=== PATIENT | male | born 1945 | race Caucasian/White ===

== ENCOUNTER 2017-07-10 09:07 | Inpatient (IN) | payer MEDICARE, OTHER ==
[~2017-07-10] VITALS: Ht 170.2 cm; Wt 87.5 kg
[2017-07-10] VITALS (21 sets, daily range): BP systolic 123–168; BP diastolic 58–99
[~2017-07-10 09:07] MED LIST: ALPR-324 PO; ATOR40TA71 PO; CLOP75TA15 PO; DULA0.75; FURO40TA4 PO; GLIP10TA11 PO; LISI40TA4 PO; METF500T7 PO; METO25TA6 PO; NIFE60TA69 PO; NITR0.4T51 SL; PIOG15TA8 PO; ROPI1TAB2 PO; TAMS0.4C32 PO; TRAZ-146 PO
[2017-07-10] MEDS ORDERED: aspirin 81mg tab.chew PO ONE (09:25)
[2017-07-10 09:55] LABS: INR 1.1 INR; PARTIAL THROMBOPLASTIN TIME 24 SECONDS (22-32); PROTHROMBIN TIME 11.1 SECONDS (9.0-12.0)
[2017-07-10 09:59] LABS: ALANINE AMINOTRANSFERASE 21 U/L (12-78); ALBUMIN 3.2 G/DL (3.4-5.0); ALKALINE PHOSPHATASE 86 IU/L (46-116); ANION GAP 10 (8-16); ASPARTATE AMINO TRANSFERASE 15 U/L (10-37); BILIRUBIN,TOTAL 0.2 MG/DL (0.1-1.0); BLOOD UREA NITROGEN 30 MG/DL (7-18); BUN/CREATININE RATIO 21.4 (5.4-32.0); CALCIUM 8.9 MG/DL (8.5-10.1); CHLORIDE 104 MMOL/L (99-107); GLUCOSE 137 MG/DL (70-104); POTASSIUM 3.7 MMOL/L (3.5-5.1); SODIUM 139 MMOL/L (135-145); TOTAL CARBON DIOXIDE 25.1 MMOL/L (24-32); TOTAL PROTEIN 6.4 G/DL (6.4-8.2); eGFR 50 ML/MIN
[2017-07-10] MEDS ORDERED: nitroGLYCERIN 0.4mg SUBLingual tab SL PRN ×2 (10:25→12:55)
[2017-07-10 10:27] LABS: BASOPHILS # (AUTO) 0.1 X10'3 (0-0.2); BASOPHILS % (AUTO) 0.6 % (0-1); EOSINOPHILS # (AUTO) 0.4 X10'3 (0-0.9); LYMPHOCYTES # (AUTO) 1.2 X10'3 (1.1-4.8); LYMPHOCYTES % (AUTO) 12.1 % (21-51); MEAN CORPUSCULAR HGB CONC 31.5 % (33.0-36.5); MEAN CORPUSCULAR VOLUME 82.4 FL (78-98); MEAN PLATELET VOLUME 7.9 FL (7.4-10.4); MONOCYTES # (AUTO) 0.7 X10'3 (0-0.9); MONOCYTES % (AUTO) 7.3 % (2-12); NEUTROPHILS # (AUTO) 7.6 X10'3 (1.8-7.7); PLATELET COUNT 383 X10'3 (140-440); RED BLOOD COUNT 2.65 X10'6 (4.70-6.10); RED CELL DISTRIBUTION WIDTH 19.5 % (11.5-14.5)
[2017-07-10 10:55] LABS: HEMATOCRIT 21.9 % (42.0-52.0); HEMOGLOBIN 6.9 g/dl (14.0-17.9)
[2017-07-10] MEDS ORDERED: furosemide 10 MG/1 ML 10ml inj IV ONE (12:20)
[2017-07-10] MEDS ORDERED: ASPI-920 PO (12:30)
[2017-07-10] MEDS ORDERED: IRON1CAP13 PO (12:30)
[2017-07-10] MEDS ORDERED: normal saline 1000ml 1,000 ML IV SCH ×2 (12:46→16:16)
[2017-07-10] MEDS ORDERED: magnesium hydroxide 30ml (MOM) UD suspension PO PRN (12:50)
[2017-07-10] MEDS ORDERED: magnesium Cl slow-release 64mg tablet PO PRN (12:50)
[2017-07-10] MEDS ORDERED: potassium Cl 20 mEq SR tablet PO PRN ×2 (12:50)
[2017-07-10] MEDS ORDERED: potassium Cl 40MEQ/NS 500ml 500 ML IV PRN ×2 (12:50)
[2017-07-10] MEDS ORDERED: ondansetron/PF 4mg/2ml inj IV PRN (12:50)
[2017-07-10] MEDS ORDERED: magnesium 2GM in 50ml NS 50 ML IV PRN (12:50)
[2017-07-10] MEDS ORDERED: HYDROcodone/acetaminophen 10/325mg tab PO PRN (12:50)
[2017-07-10] MEDS ORDERED: magnesium 4gm in 100ml NS 100 ML IV PRN (12:50)
[2017-07-10] MEDS ORDERED: morphine 2 MG/ML inj. syringe IV PRN ×2 (12:50)
[2017-07-10] MEDS ORDERED: HYDROcodone/acetaminophen 5mg/325mg tablet PO PRN (12:50)
[2017-07-10] MEDS ORDERED: mag hydrox/Alum hydrox/simeth 30ml oral suspension PO PRN (12:50)
[2017-07-10] MEDS ORDERED: acetaminophen 325mg tablet PO PRN ×2 (12:50)
[2017-07-10] MEDS ORDERED: MESSAGE TO PHARMACY PO ONE (12:55)
[2017-07-10] MEDS ORDERED: dextrose 50%-water 50ml dispensing syringe IV PRN ×2 (12:55)
[2017-07-10] MEDS ORDERED: glucagon, human recombinant 1mg kit SUBCUT PRN (12:55)
[2017-07-10] MEDS ORDERED: non-formulary drug (Alprazolam 1 MG) PO PRN (12:55)
[2017-07-10] MEDS ORDERED: insulin Lispro (HumaLOG) vial - multi-dose SQ SCH (12:55)
[2017-07-10] MEDS ORDERED: dextrose ORAL solution 15 GM/59 ML bottle PO PRN ×2 (12:55)
[2017-07-10] MEDS ORDERED: ALPRAZolam 0.5mg tablet PO PRN (13:05)
[2017-07-10 13:58] LABS: OCCULT BLOOD STOOL POSITIVE (Neg)
[2017-07-10 15:26] LABS: HEMOGLOBIN A1C 6.5 % (4.5-6.2)
[2017-07-10] MEDS ORDERED: fentaNYL/PF 50MCG/1 ML 2ML syringe ONE (15:41)
[2017-07-10] MEDS ORDERED: MIDAZolam 1mg/ml 10ml vial ONE (15:41)
[2017-07-10] MEDS ORDERED: LIDOcaine Viscous 15ml cup ONE (15:42)
[2017-07-10] MEDS ORDERED: fentaNYL/PF 50MCG/1 ML 2ML syringe IV PRN (16:20)
[2017-07-10] MEDS ORDERED: LIDOcaine Viscous 15ml cup PO ONE (16:20)
[2017-07-10] MEDS ORDERED: MIDAZolam 5mg/5ml vial IV PRN (16:20)
[2017-07-10] MEDS: pantoprazole 40mg Tablet.DR PO SCH (20:00)
[2017-07-10] MEDS: metoprolol tartrate 25mg tablet PO SCH (20:00)
[2017-07-10] MEDS ORDERED: furosemide 40mg/4ml inj IV ONE (20:10)
[2017-07-10] MEDS ORDERED: non-formulary drug (Trazodone HCl 1 TAB) PO SCH (21:00)
[2017-07-10] MEDS: ROPINIRole 1mg tablet PO SCH (21:00)
[2017-07-10] MEDS: traZODone 50mg tablet PO SCH (21:00)
[2017-07-10] MEDS: Insulin Detemir pen SQ SCH (21:00)
[2017-07-10] MEDS ORDERED: temazepam 15mg capsule PO PRN (21:00)
[2017-07-11] VITALS (13 sets, daily range): BP systolic 130–164; BP diastolic 64–85
[2017-07-11 05:44] LABS: BASOPHILS % (AUTO) 0.3 % (0-1); EOSINOPHILS # (AUTO) 0.3 X10'3 (0-0.9); EOSINOPHILS % (AUTO) 2.8 % (0-6); HEMATOCRIT 35.1 % (42.0-52.0); HEMOGLOBIN 11.6 g/dl (14.0-17.9); LYMPHOCYTES # (AUTO) 1.5 X10'3 (1.1-4.8); LYMPHOCYTES % (AUTO) 13.2 % (21-51); MEAN CORPUSCULAR HGB CONC 32.9 % (33.0-36.5); MEAN CORPUSCULAR VOLUME 85.1 FL (78-98); MEAN PLATELET VOLUME 7.6 FL (7.4-10.4); MONOCYTES # (AUTO) 0.8 X10'3 (0-0.9); MONOCYTES % (AUTO) 7.2 % (2-12); NEUTROPHILS # (AUTO) 8.9 X10'3 (1.8-7.7); NEUTROPHILS % (AUTO) 76.5 % (42-75); PLATELET COUNT 349 X10'3 (140-440); RED BLOOD COUNT 4.12 X10'6 (4.70-6.10); RED CELL DISTRIBUTION WIDTH 17.6 % (11.5-14.5); WHITE BLOOD COUNT 11.6 X10'3 (4.5-11.0)
[2017-07-11 06:16] LABS: ALANINE AMINOTRANSFERASE 24 U/L (12-78); ALBUMIN 3.5 G/DL (3.4-5.0); ALBUMIN/GLOBULIN RATIO 1.1 (1.1-1.5); ALKALINE PHOSPHATASE 102 IU/L (46-116); ANION GAP 10 (8-16); ASPARTATE AMINO TRANSFERASE 18 U/L (10-37); BILIRUBIN,TOTAL 0.9 MG/DL (0.1-1.0); BLOOD UREA NITROGEN 21 MG/DL (7-18); BUN/CREATININE RATIO 16.7 (5.4-32.0); CALCIUM 8.5 MG/DL (8.5-10.1); CHLORIDE 106 MMOL/L (99-107); CREATININE 1.26 MG/DL (0.60-1.10); GLUCOSE 133 MG/DL (70-104); MAGNESIUM 2.1 MG/DL (1.5-2.4); POTASSIUM 3.6 MMOL/L (3.5-5.1); SODIUM 142 MMOL/L (135-145); TOTAL CARBON DIOXIDE 26.3 MMOL/L (24-32); TOTAL PROTEIN 6.8 G/DL (6.4-8.2); eGFR 57 ML/MIN
[2017-07-11] MEDS: K and/or MAG REPLACEMENT MC SCH (08:00)
[2017-07-11] MEDS ORDERED: non-formulary drug (Atorvastatin Calcium 1 TABLET) PO SCH (08:00)
[2017-07-11] MEDS ORDERED: NIFEDIPINE PO SCH (08:00)
[2017-07-11] MEDS: pantoprazole 40mg Tablet.DR PO SCH ×2 (09:19→21:18)
[2017-07-11] MEDS: atorvastatin 20mg tablet PO SCH (09:20)
[2017-07-11] MEDS: metoprolol tartrate 25mg tablet PO SCH ×2 (09:20→21:19)
[2017-07-11] MEDS: clopidogrel 75mg tablet PO SCH (09:21)
[2017-07-11] MEDS: NIFEdipine XL 30mg tablet PO SCH (09:22)
[2017-07-11] MEDS: tamsulosin 0.4mg capsule PO SCH (09:22)
[2017-07-11] MEDS: lisinopril 10 MG tablet PO SCH (09:24)
[2017-07-11 18:26] LABS: BASOPHILS % (AUTO) 0.2 % (0-1); EOSINOPHILS # (AUTO) 0.3 X10'3 (0-0.9); EOSINOPHILS % (AUTO) 2.4 % (0-6); HEMATOCRIT 36.8 % (42.0-52.0); HEMOGLOBIN 12.2 g/dl (14.0-17.9); LYMPHOCYTES # (AUTO) 1.5 X10'3 (1.1-4.8); LYMPHOCYTES % (AUTO) 14.1 % (21-51); MEAN CORPUSCULAR HEMOGLOBIN 28.4 PG (27.0-31.0); MEAN CORPUSCULAR HGB CONC 33.2 % (33.0-36.5); MEAN CORPUSCULAR VOLUME 85.5 FL (78-98); MEAN PLATELET VOLUME 7.8 FL (7.4-10.4); MONOCYTES % (AUTO) 8.9 % (2-12); NEUTROPHILS # (AUTO) 7.9 X10'3 (1.8-7.7); NEUTROPHILS % (AUTO) 74.4 % (42-75); PLATELET COUNT 338 X10'3 (140-440); RED CELL DISTRIBUTION WIDTH 18.7 % (11.5-14.5); WHITE BLOOD COUNT 10.6 X10'3 (4.5-11.0)
[2017-07-11] MEDS: Insulin Detemir pen SQ SCH (21:00)
[2017-07-11] MEDS: ROPINIRole 1mg tablet PO SCH (21:18)
[2017-07-11] MEDS: traZODone 50mg tablet PO SCH (21:19)
[2017-07-12 03:06] VITALS: BP 156/72
[2017-07-12 06:09] LABS: BASOPHILS % (AUTO) 0.2 % (0-1); EOSINOPHILS # (AUTO) 0.3 X10'3 (0-0.9); EOSINOPHILS % (AUTO) 2.9 % (0-6); HEMATOCRIT 35.2 % (42.0-52.0); HEMOGLOBIN 11.5 g/dl (14.0-17.9); LYMPHOCYTES # (AUTO) 1.9 X10'3 (1.1-4.8); LYMPHOCYTES % (AUTO) 18.8 % (21-51); MEAN CORPUSCULAR HGB CONC 32.7 % (33.0-36.5); MEAN CORPUSCULAR VOLUME 85.7 FL (78-98); MEAN PLATELET VOLUME 8.2 FL (7.4-10.4); MONOCYTES % (AUTO) 10.1 % (2-12); NEUTROPHILS # (AUTO) 6.8 X10'3 (1.8-7.7); PLATELET COUNT 324 X10'3 (140-440); RED BLOOD COUNT 4.11 X10'6 (4.70-6.10); RED CELL DISTRIBUTION WIDTH 18.6 % (11.5-14.5)
[2017-07-12 06:37] LABS: ALANINE AMINOTRANSFERASE 20 U/L (12-78); ALBUMIN 3.2 G/DL (3.4-5.0); ALKALINE PHOSPHATASE 96 IU/L (46-116); ANION GAP 8 (8-16); ASPARTATE AMINO TRANSFERASE 16 U/L (10-37); BILIRUBIN,TOTAL 0.5 MG/DL (0.1-1.0); BLOOD UREA NITROGEN 20 MG/DL (7-18); BUN/CREATININE RATIO 16.4 (5.4-32.0); CALCIUM 8.7 MG/DL (8.5-10.1); CHLORIDE 107 MMOL/L (99-107); CREATININE 1.22 MG/DL (0.60-1.10); GLUCOSE 138 MG/DL (70-104); MAGNESIUM 2.1 MG/DL (1.5-2.4); POTASSIUM 3.4 MMOL/L (3.5-5.1); SODIUM 141 MMOL/L (135-145); TOTAL CARBON DIOXIDE 26.2 MMOL/L (24-32); TOTAL PROTEIN 6.4 G/DL (6.4-8.2); eGFR 59 ML/MIN
[2017-07-12 08:00] VITALS: BP 164/77
[2017-07-12] MEDS: clopidogrel 75mg tablet PO SCH (08:00)
[2017-07-12] MEDS: K and/or MAG REPLACEMENT MC SCH (08:00)
[2017-07-12] MEDS ORDERED: POTA20TA19 PO (08:30)
[2017-07-12] MEDS ORDERED: PANT40TA4 PO (08:30)
[2017-07-12] MEDS: lisinopril 10 MG tablet PO SCH (08:47)
[2017-07-12] MEDS: atorvastatin 20mg tablet PO SCH (08:47)
[2017-07-12] MEDS: pantoprazole 40mg Tablet.DR PO SCH (08:48)
[2017-07-12] MEDS: NIFEdipine XL 30mg tablet PO SCH (08:51)
[2017-07-12] MEDS: metoprolol tartrate 25mg tablet PO SCH (08:52)
[2017-07-12] MEDS: tamsulosin 0.4mg capsule PO SCH (08:52)
== END 2017-07-12 10:50 | disposition home or self-care (01) | DRG 378 ==
LOC: ER 09:08 → ED HOLD 12:46 → EDBEDREQ 15:50 → PCU 3S 17:57
PROVIDERS: ADMIT Internal Medicine; ATTEND Internal Medicine
PROC: 0DB68ZX Excision of Stomach, Via Natural or Artificial Opening Endoscopic, Diagnostic (ICD-10-PCS; principal; 2017-07-10)
PROC: 30233N1 Transfusion of Nonautologous Red Blood Cells into Peripheral Vein, Percutaneous Approach (ICD-10-PCS; 2017-07-10)
DX: K92.2 Gastrointestinal hemorrhage, unspecified (principal); D62 Acute posthemorrhagic anemia; E11.51 Type 2 diabetes mellitus with diabetic peripheral angiopathy without gangrene; J44.9 Chronic obstructive pulmonary disease, unspecified; K52.9 Noninfective gastroenteritis and colitis, unspecified; K22.70 Barrett's esophagus without dysplasia; E78.5 Hyperlipidemia, unspecified; F41.9 Anxiety disorder, unspecified; K22.4 Dyskinesia of esophagus; G25.81 Restless legs syndrome; G47.00 Insomnia, unspecified; I25.10 Atherosclerotic heart disease of native coronary artery without angina pectoris; N28.9 Disorder of kidney and ureter, unspecified; N40.0 Benign prostatic hyperplasia without lower urinary tract symptoms; Z95.820 Peripheral vascular angioplasty status with implants and grafts; Z79.82 Long term (current) use of aspirin; Z79.899 Other long term (current) drug therapy; Z79.84 Long term (current) use of oral hypoglycemic drugs; Z79.02 Long term (current) use of antithrombotics/antiplatelets; Z86.010 Personal history of colon polyps
CPT/HCPCS: 36415; 43239; 71045; 80053; 82272; 82948; 83036; 83735; 83880; 84484; 85025; 85610; 85730; 86885; 86900; 86901; 86920; 88305; 93005; 93306; 96374; 99285; A4620; G0500; J1940; J2250; J3010; J7030; P9016

== ENCOUNTER 2017-07-20 05:26 | Inpatient (IN) | payer MEDICARE, OTHER ==
[2017-07-16 14:46] LABS: BASOPHILS % (AUTO) 0.4 % (0-1); EOSINOPHILS # (AUTO) 0.5 X10'3 (0-0.9); LYMPHOCYTES # (AUTO) 2.4 X10'3 (1.1-4.8); LYMPHOCYTES % (AUTO) 23.8 % (21-51); MEAN CORPUSCULAR HEMOGLOBIN 28.3 PG (27.0-31.0); MEAN CORPUSCULAR HGB CONC 32.9 % (33.0-36.5); MEAN PLATELET VOLUME 8.1 FL (7.4-10.4); MONOCYTES # (AUTO) 0.7 X10'3 (0-0.9); MONOCYTES % (AUTO) 7.3 % (2-12); NEUTROPHILS # (AUTO) 6.5 X10'3 (1.8-7.7); NEUTROPHILS % (AUTO) 63.5 % (42-75); PRE OP HEMATOCRIT 36.3 % (42.0-52.0); PRE OP HEMOGLOBIN 11.9 g/dL (14.0-17.9); PRE OP PLATELET COUNT 304 X10'3 (140-440); RED BLOOD COUNT 4.22 X10'6 (4.70-6.10); RED CELL DISTRIBUTION WIDTH 18.2 % (11.5-14.5)
[2017-07-16 14:47] LABS: CLARITY,URINE CLEAR (Clear); COLOR,URINE YELLOW (Yellow); GLUCOSE, URINE NEGATIVE (Neg); KETONES,URINE NEGATIVE (Neg); LEUKOCYTE ESTERASE ,URINE NEGATIVE (Neg); NITRITES, URINE NEGATIVE (Neg); OCCULT BLOOD,URINE NEGATIVE (Neg); PH,URINE 5.5 (4.8-8.0); PROTEIN,URINE >=300 mg/dl (Neg); UROBILINOGEN,URINE 0.2 E.U/dL (0.2-1.0)
[2017-07-16 14:57] LABS: UA COLLECTION TYPE CLN CATCH MIDSTREAM
[2017-07-16 14:58] LABS: BACTERIA,URINE FEW /HPF (Neg); RBC,URINE 0-2 /HPF (0-2); SQUAMOUS EPITHELIAL CELL,UR FEW /LPF (FEW); WBC,URINE 0-4 /HPF (0-4)
[2017-07-16 15:03] LABS: PRE OP PROTIME 10.8 SECONDS (9.0-12.0)
[2017-07-16 15:11] LABS: ABG BASE EXCESS -4.1 mmol/L (-2.0-3.0); ABG HCO3 19.9 mmol/L (22.0-26.0); ABG OXYGEN SATURATION 94.2 % (95-98); ABG PCO2 (T) 32.9 mmHg (35.0-48.0); ABG PH (T) 7.399 (7.350-7.450); ABG PO2 (T) 72.3 mmHg (83-108); ALLEN'S TEST Positive; FCOHb 0.5 % (0.5-1.5); FMetHb 0.1 % (0.3-1.12); FO2Hb 93.6 % (94-100); TOTAL HEMOGLOBIN 12.2 G/dl (14.0-18.0)
[2017-07-16 15:12] LABS: ALBUMIN 3.6 G/DL (3.4-5.0); ALBUMIN/GLOBULIN RATIO 1.1 (1.1-1.5); ALKALINE PHOSPHATASE 107 IU/L (46-116); BLOOD UREA NITROGEN 35 MG/DL (7-18); CALCIUM 9.3 MG/DL (8.5-10.1); CHLORIDE 104 MMOL/L (99-107); PRE OP ALT 23 U/L (30-65); PRE OP ANION GAP 11 (8-16); PRE OP AST 14 U/L (10-37); PRE OP BILIRUB, TOTAL 0.2 MG/DL (0.0-1.0); PRE OP GLUCOSE 137 MG/DL (70-104); PRE OP POTASSIUM 4.1 MMOL/L (3.4-5.1); PRE OP SODIUM 139 MMOL/L (135-145); TOTAL CARBON DIOXIDE 24.3 MMOL/L (24-32); TOTAL PROTEIN 6.9 G/DL (6.4-8.2); eGFR 50 ML/MIN
[2017-07-16 16:00] LABS: HEMOGLOBIN A1C 5.7 % (4.5-6.2)
[~2017-07-20] VITALS: Ht 170.2 cm; Wt 88.7 kg
[2017-07-20] VITALS (20 sets, daily range): BP systolic 114–156; BP diastolic 40–79
[~2017-07-20 05:26] MED LIST changes: -FURO40TA4 PO; +IRON1CAP13 PO; +PANT40TA4 PO; +albuterol 2.5 MG/3 ML nebule NEB ONE; +ringers solution, lacted 1,000 ML IV SCH
[2017-07-20] MEDS ORDERED: DOCUMENT DATE & TIME OF BETA-BLOCKER PO ONE (05:30)
[2017-07-20] MEDS ORDERED: dextrose 50%-water 50ml dispensing syringe IV PRN ×2 (05:30→11:40)
[2017-07-20] MEDS ORDERED: ceFAZolin 2gm in dextrose, iso 100 ML IV ONE (05:30)
[2017-07-20] MEDS ORDERED: mupirocin 2% ointment 22GM TP SCH (05:30)
[2017-07-20] MEDS ORDERED: famotidine 20mg tablet PO ONE (05:30)
[2017-07-20] MEDS ORDERED: insulin Lispro (HumaLOG) vial - multi-dose SQ PRN (05:30)
[2017-07-20] MEDS ORDERED: vancomycin inj 1,500 MG in normal saline 300ml IV soln IV ONE (05:30)
[2017-07-20] MEDS ORDERED: SUFENTANIL CITRATE 50 MCG/ML 2ml ampule IV ONE (06:57)
[2017-07-20] MEDS ORDERED: MIDAZolam 1mg/ml 10ml vial ONE (06:57)
[2017-07-20] MEDS ORDERED: LIDOcaine 1%/PF (10mg/ml) 5ml vial ONE (07:00)
[2017-07-20] MEDS: LORazepam 2 mg/ml vial IV PRN (07:02)
[2017-07-20] MEDS ORDERED: rocuronium 10mg/ml inj IV ONE ×4 (07:03→10:09)
[2017-07-20] MEDS ORDERED: propofol inj 20 ML IV ONE (07:03)
[2017-07-20] MEDS ORDERED: TRANEXAMIC ACID IV ONE (07:05)
[2017-07-20] MEDS ORDERED: NORMAL SALINE IV ONE (07:05)
[2017-07-20 07:56] LABS: ABG BASE EXCESS -4.8 mmol/L (-2.0-3.0); ABG HCO3 21.8 mmol/L (22.0-26.0); ABG OXYGEN SATURATION 98.8 % (95-98); ABG PCO2 47.1 mmHg (35.0-45.0); ABG PH 7.284 (7.350-7.450); ABG PO2 176.2 mmHg (60.0-100.0); CL (ABG) 110 mmol/L (99-107); FCOHb 0.1 % (0.5-1.5); FMetHb 0.2 % (0.3-1.12); FO2Hb 98.5 % (94-100); GLUCOSE (ABG) 160 mg/dl (70-105); IONIZED CA (ABG) 1.16 mmol/L (1.03-1.32); K (ABG) 3.5 mmol/L (3.3-5.1); NA (ABG) 138 mmol/L (135-145); TOTAL HEMOGLOBIN 10.5 G/dl (14.0-18.0)
[2017-07-20 09:15] LABS: ABG BASE EXCESS -3.4 mmol/L (-2.0-3.0); ABG HCO3 21.9 mmol/L (22.0-26.0); ABG OXYGEN SATURATION 99.7 % (95-98); ABG PCO2 40.5 mmHg (35.0-45.0); ABG PH 7.351 (7.350-7.450); ABG PO2 367.9 mmHg (60.0-100.0); CL (ABG) 108 mmol/L (99-107); FCOHb 0.9 % (0.5-1.5); FMetHb 0.3 % (0.3-1.12); FO2Hb 98.5 % (94-100); GLUCOSE (ABG) 117 mg/dl (70-105); IONIZED CA (ABG) 1.09 mmol/L (1.03-1.32); K (ABG) 4.5 mmol/L (3.3-5.1); NA (ABG) 138 mmol/L (135-145); TOTAL HEMOGLOBIN 7.9 G/dl (14.0-18.0)
[2017-07-20 09:30] LABS: ABG BASE EXCESS VENOUS -0.2 mmol/L; ABG HCO3 VENOUS 25.6 mmol/L; ABG PCO2 VENOUS 47.8 mmHg; ABG PO2 VENOUS 48.3 mmHg; CL (ABG) 107 mmol/L (99-107); FCOHb VENOUS 1.5 %; FHHb VENOUS 16.5 %; FMetHb VENOUS 0.3 %; FO2Hb VENOUS 81.7 %; GLUCOSE (ABG) 115 mg/dl (70-105); IONIZED CA (ABG) 1.09 mmol/L (1.03-1.32); K (ABG) 4.4 mmol/L (3.3-5.1); NA (ABG) 139 mmol/L (135-145); TOTAL HEMOGLOBIN 7.7 G/dl (14.0-18.0)
[2017-07-20] MEDS ORDERED: methylPREDNISolone sod. succ. 500mg inj ONE (10:00)
[2017-07-20] MEDS ORDERED: potassium Cl 2 mEq/ml inj IV ONE (10:00)
[2017-07-20] MEDS ORDERED: heparin 10,000 units/1 ML INJ ONE ×2 (10:00)
[2017-07-20] MEDS ORDERED: phenylephrine 10mg/ml inj IV ONE (10:00)
[2017-07-20] MEDS ORDERED: albumin (human) 25% 100 ML IV solution IV ONE (10:00)
[2017-07-20] MEDS ORDERED: papaverine 30 mg/ml 2ml inj. ONE ×2 (10:00)
[2017-07-20] MEDS ORDERED: calcium chloride 100 MG/1 ML inj IV ONE (10:00)
[2017-07-20] MEDS ORDERED: MAGNESIUM SULFATE 4 MEQ/ML (1gm/2ml) injection ONE (10:00)
[2017-07-20] MEDS ORDERED: LIDOcaine 2% (20 mg/ml) 5ml cardiac syringe ONE (10:00)
[2017-07-20] MEDS ORDERED: sodium bicarbonate (8.4%) 1 mEq/ml syringe ONE (10:00)
[2017-07-20 10:10] LABS: ABG HCO3 24.4 mmol/L (22.0-26.0); ABG OXYGEN SATURATION 99.4 % (95-98); ABG PCO2 37.9 mmHg (35.0-45.0); ABG PH 7.426 (7.350-7.450); ABG PO2 384.7 mmHg (60.0-100.0); CL (ABG) 109 mmol/L (99-107); FCOHb 0.6 % (0.5-1.5); FMetHb 0.2 % (0.3-1.12); FO2Hb 98.6 % (94-100); GLUCOSE (ABG) 111 mg/dl (70-105); IONIZED CA (ABG) 1.06 mmol/L (1.03-1.32); K (ABG) 4.3 mmol/L (3.3-5.1); NA (ABG) 138 mmol/L (135-145); TOTAL HEMOGLOBIN 7.8 G/dl (14.0-18.0)
[2017-07-20 10:41] LABS: ABG BASE EXCESS 2.2 mmol/L (-2.0-3.0); ABG HCO3 26.1 mmol/L (22.0-26.0); ABG OXYGEN SATURATION 99.4 % (95-98); ABG PCO2 36.8 mmHg (35.0-45.0); ABG PH 7.468 (7.350-7.450); ABG PO2 421.7 mmHg (60.0-100.0); CL (ABG) 109 mmol/L (99-107); FCOHb 0.9 % (0.5-1.5); FO2Hb 98.5 % (94-100); GLUCOSE (ABG) 108 mg/dl (70-105); IONIZED CA (ABG) 1.16 mmol/L (1.03-1.32); K (ABG) 4.6 mmol/L (3.3-5.1); NA (ABG) 138 mmol/L (135-145); TOTAL HEMOGLOBIN 7.3 G/dl (14.0-18.0)
[2017-07-20 11:01] LABS: ABG BASE EXCESS VENOUS 0.6 mmol/L; ABG HCO3 VENOUS 26.4 mmol/L; ABG PCO2 VENOUS 48.7 mmHg; ABG PO2 VENOUS 32.9 mmHg; CL (ABG) 109 mmol/L (99-107); FCOHb VENOUS 1.2 %; FHHb VENOUS 36.6 %; FMetHb VENOUS 0.2 %; GLUCOSE (ABG) 100 mg/dl (70-105); IONIZED CA (ABG) 1.24 mmol/L (1.03-1.32); K (ABG) 4.3 mmol/L (3.3-5.1); NA (ABG) 139 mmol/L (135-145); TOTAL HEMOGLOBIN 7.6 G/dl (14.0-18.0)
[2017-07-20] MEDS ORDERED: DOPamine 400mg/D5W 250ml 250 ML IV PRN (11:37)
[2017-07-20] MEDS ORDERED: sodium phosphate inj. 30 MMOL in dextrose 5%-water 250 ML IV PRN (11:40)
[2017-07-20] MEDS ORDERED: metoclopramide 5 mg/ml inj IV PRN (11:40)
[2017-07-20] MEDS ORDERED: sodium phosphate inj. 15 MMOL in dextrose 5%-water 150 ML IV PRN (11:40)
[2017-07-20] MEDS ORDERED: ondansetron/PF 4mg/2ml inj IV PRN (11:40)
[2017-07-20] MEDS ORDERED: magnesium 4gm in 100ml NS 100 ML IV PRN (11:40)
[2017-07-20] MEDS ORDERED: acetaminophen 325mg tablet PO PRN (11:40)
[2017-07-20] MEDS ORDERED: magnesium hydroxide 30ml (MOM) UD suspension PO PRN (11:40)
[2017-07-20] MEDS ORDERED: Neutra Phos packet PO PRN (11:40)
[2017-07-20] MEDS ORDERED: normal saline 250ml IV soln 250 ML IV PRN (11:40)
[2017-07-20] MEDS ORDERED: insulin regular, human inj. 100 UNITS in normal saline 100ml IV soln 100 ML IV SCH ×2 (11:40)
[2017-07-20] MEDS ORDERED: potassium Cl 20mEq/100mL bag 100 ML IV PRN (11:40)
[2017-07-20] MEDS ORDERED: magnesium 2GM in 50ml NS 50 ML IV PRN (11:40)
[2017-07-20] MEDS ORDERED: niCARDipine/sod cl 20mg/200ml 200 ML IV ONE (11:50)
[2017-07-20 12:09] LABS: BASOPHILS % (AUTO) 0.3 % (0-1); EOSINOPHILS # (AUTO) 0.2 X10'3 (0-0.9); EOSINOPHILS % (AUTO) 1.4 % (0-6); HEMATOCRIT 26.1 % (42.0-52.0); HEMOGLOBIN 8.5 g/dl (14.0-17.9); LYMPHOCYTES # (AUTO) 0.7 X10'3 (1.1-4.8); LYMPHOCYTES % (AUTO) 5.5 % (21-51); MEAN CORPUSCULAR HEMOGLOBIN 27.5 PG (27.0-31.0); MEAN CORPUSCULAR HGB CONC 32.7 % (33.0-36.5); MEAN CORPUSCULAR VOLUME 84.2 FL (78-98); MEAN PLATELET VOLUME 8.5 FL (7.4-10.4); MONOCYTES # (AUTO) 0.4 X10'3 (0-0.9); MONOCYTES % (AUTO) 3.6 % (2-12); NEUTROPHILS # (AUTO) 10.8 X10'3 (1.8-7.7); NEUTROPHILS % (AUTO) 89.2 % (42-75); PLATELET COUNT 171 X10'3 (140-440); RED CELL DISTRIBUTION WIDTH 17.7 % (11.5-14.5); WHITE BLOOD COUNT 12.2 X10'3 (4.5-11.0)
[2017-07-20 12:10] LABS: ABG BASE EXCESS -1.7 mmol/L (-2.0-3.0); ABG HCO3 23.1 mmol/L (22.0-26.0); ABG OXYGEN SATURATION 95.5 % (95-98); ABG PCO2 (T) 37.7 mmHg (35.0-48.0); ABG PH (T) 7.401 (7.350-7.450); ABG PO2 (T) 78.4 mmHg (83-108); FCOHb 0.3 % (0.5-1.5); FLOW 30 L/min; FMetHb 0.1 % (0.3-1.12); FO2Hb 95.1 % (94-100); PEEP 5 cm H2O; RESPIRATORY RATE 14 b/min; TIDAL VOLUME 600 mL; TOTAL HEMOGLOBIN 9.4 G/dl (14.0-18.0)
[2017-07-20 12:20] LABS: INR 1.2 INR; PARTIAL THROMBOPLASTIN TIME 28 SECONDS (22-32); PROTHROMBIN TIME 12.5 SECONDS (9.0-12.0)
[2017-07-20] MEDS: sodium chloride 0.45% 1,000 ML IV SCH (12:20)
[2017-07-20 12:26] LABS: ALANINE AMINOTRANSFERASE 18 U/L (12-78); ALBUMIN 2.5 G/DL (3.4-5.0); ALBUMIN/GLOBULIN RATIO 1.3 (1.1-1.5); ALKALINE PHOSPHATASE 62 IU/L (46-116); ANION GAP 4 (8-16); ASPARTATE AMINO TRANSFERASE 21 U/L (10-37); BILIRUBIN,TOTAL 0.2 MG/DL (0.1-1.0); BLOOD UREA NITROGEN 28 MG/DL (7-18); BUN/CREATININE RATIO 23.7 (5.4-32.0); CALCIUM 8.2 MG/DL (8.5-10.1); CHLORIDE 113 MMOL/L (99-107); CREATININE 1.18 MG/DL (0.60-1.10); GLUCOSE 95 MG/DL (70-104); MAGNESIUM 3.1 MG/DL (1.5-2.4); PHOSPHORUS 2.6 MG/DL (2.3-4.5); POTASSIUM 4.1 MMOL/L (3.5-5.1); SODIUM 145 MMOL/L (135-145); TOTAL CARBON DIOXIDE 27.6 MMOL/L (24-32); TOTAL PROTEIN 4.4 G/DL (6.4-8.2); eGFR 61 ML/MIN
[2017-07-20] MEDS: insulin Lispro (HumaLOG) vial - multi-dose SQ SCH ×2 (13:00→15:00)
[2017-07-20] MEDS: insulin regular, human inj. 100 UNITS in normal saline 100ml IV IV SCH ×2 (13:27)
[2017-07-20] MEDS: niCARDipine/sod cl 20mg/200ml 200 ML IV PRN ×2 (13:32→19:55)
[2017-07-20] MEDS ORDERED: propofol 1000mg/100ml bottle 100 ML IV ONE (13:38)
[2017-07-20 13:41] LABS: ACT @ 1.70 U 426 SEC (193-297); ACT @ 2.84 U 636 SEC (260-420); BASELINE ACT 189 SEC (101-148); PATIENT WEIGHT 84.0k KG
[2017-07-20] MEDS ORDERED: propofol 1000mg/100ml bottle 100 ML IV PRN (13:49)
[2017-07-20] MEDS: nitroGLYCERIN-Tridil 50MG/D5W 250 ML IV PRN (14:17)
[2017-07-20] MEDS: potassium Cl 20mEq/100mL bag 100 ML IV PRN ×3 (14:50→19:31)
[2017-07-20] MEDS: albumin (Human) 5% 250ml 250 ML IV PRN ×2 (15:47→16:56)
[2017-07-20] MEDS: cefazolin 1gm/NS 100mL 100 ML IV SCH ×2 (15:48→23:32)
[2017-07-20 16:06] LABS: ABG BASE EXCESS -3.3 mmol/L (-2.0-3.0); ABG HCO3 21.6 mmol/L (22.0-26.0); ABG OXYGEN SATURATION 92.6 % (95-98); ABG PCO2 (T) 38.1 mmHg (35.0-48.0); ABG PH (T) 7.372 (7.350-7.450); ABG PO2 (T) 68.6 mmHg (83-108); FCOHb 0.3 % (0.5-1.5); FMetHb 0.1 % (0.3-1.12); FO2Hb 92.2 % (94-100); PEEP 5 cm H2O; RESPIRATORY RATE 14 b/min; TIDAL VOLUME 600 mL; TOTAL HEMOGLOBIN 9.7 G/dl (14.0-18.0)
[2017-07-20 17:44] LABS: ALBUMIN 2.9 G/DL (3.4-5.0); ANION GAP 3 (8-16); BLOOD UREA NITROGEN 30 MG/DL (7-18); BUN/CREATININE RATIO 22.6 (5.4-32.0); CALCIUM 8.5 MG/DL (8.5-10.1); CHLORIDE 113 MMOL/L (99-107); CREATININE 1.33 MG/DL (0.60-1.10); GLUCOSE 163 MG/DL (70-104); POTASSIUM 3.9 MMOL/L (3.5-5.1); SODIUM 142 MMOL/L (135-145); TOTAL CARBON DIOXIDE 25.6 MMOL/L (24-32); eGFR 53 ML/MIN
[2017-07-20 17:48] LABS: BASOPHILS % (AUTO) 0 % (0-1); EOSINOPHILS # (AUTO) 0.2 X10'3 (0-0.9); EOSINOPHILS % (AUTO) 1.4 % (0-6); HEMATOCRIT 26.8 % (42.0-52.0); HEMOGLOBIN 8.7 g/dl (14.0-17.9); LYMPHOCYTES # (AUTO) 0.5 X10'3 (1.1-4.8); MEAN CORPUSCULAR HEMOGLOBIN 27.7 PG (27.0-31.0); MEAN CORPUSCULAR HGB CONC 32.6 % (33.0-36.5); MEAN CORPUSCULAR VOLUME 84.8 FL (78-98); MEAN PLATELET VOLUME 8.6 FL (7.4-10.4); MONOCYTES # (AUTO) 0.3 X10'3 (0-0.9); MONOCYTES % (AUTO) 3.2 % (2-12); NEUTROPHILS # (AUTO) 9.7 X10'3 (1.8-7.7); NEUTROPHILS % (AUTO) 90.4 % (42-75); PLATELET COUNT 195 X10'3 (140-440); RED BLOOD COUNT 3.16 X10'6 (4.70-6.10); WHITE BLOOD COUNT 10.7 X10'3 (4.5-11.0)
[2017-07-20 18:07] LABS: MAGNESIUM 2.8 MG/DL (1.5-2.4); PHOSPHORUS 2.4 MG/DL (2.3-4.5)
[2017-07-20] MEDS: vancomycin/NS 1 GM ADD-VANTAGE 250 ML IV SCH (19:56)
[2017-07-20] MEDS: mupirocin 2% ointment 22GM NS SCH (19:57)
[2017-07-20] MEDS: iron polysaccharide complex 150mg capsule PO SCH (20:00)
[2017-07-20 23:56] LABS: ABG BASE EXCESS -5.5 mmol/L (-2.0-3.0); ABG HCO3 19.8 mmol/L (22.0-26.0); ABG OXYGEN SATURATION 92.6 % (95-98); ABG PCO2 (T) 38.3 mmHg (35.0-48.0); ABG PH (T) 7.333 (7.350-7.450); ABG PO2 (T) 71.7 mmHg (83-108); FCOHb 0.3 % (0.5-1.5); FMetHb 0.2 % (0.3-1.12); FO2Hb 92.1 % (94-100); MINUTE VOLUME 10 L/min; PATIENT TEMPERATURE 37.1; PEEP 5 cm H2O; TOTAL HEMOGLOBIN 9.8 G/dl (14.0-18.0)
[2017-07-21] VITALS (23 sets, daily range): BP systolic 119–168; BP diastolic 56–82
[2017-07-21] MEDS: ROPINIRole 1mg tablet PO SCH ×2 (01:26→21:14)
[2017-07-21] MEDS: traZODone 50mg tablet PO SCH ×2 (01:27→21:14)
[2017-07-21] MEDS: docusate sod 100mg capsule PO SCH ×3 (01:28→19:47)
[2017-07-21] MEDS: pantoprazole 40mg Tablet.DR PO SCH ×3 (01:29→19:47)
[2017-07-21] MEDS: HYDROcodone/acetaminophen 10/325mg tab PO PRN ×3 (01:30→18:49)
[2017-07-21] MEDS: nitroGLYCERIN-Tridil 50MG/D5W 250 ML IV PRN ×2 (04:32→17:44)
[2017-07-21 04:33] LABS: BASOPHILS % (AUTO) 0 % (0-1); EOSINOPHILS # (AUTO) 0.2 X10'3 (0-0.9); EOSINOPHILS % (AUTO) 1.1 % (0-6); HEMATOCRIT 26.6 % (42.0-52.0); HEMOGLOBIN 8.7 g/dl (14.0-17.9); LYMPHOCYTES # (AUTO) 0.7 X10'3 (1.1-4.8); LYMPHOCYTES % (AUTO) 4.8 % (21-51); MEAN CORPUSCULAR HGB CONC 32.6 % (33.0-36.5); MEAN CORPUSCULAR VOLUME 85.9 FL (78-98); MEAN PLATELET VOLUME 8.5 FL (7.4-10.4); MONOCYTES # (AUTO) 1.2 X10'3 (0-0.9); MONOCYTES % (AUTO) 8.1 % (2-12); NEUTROPHILS # (AUTO) 12.5 X10'3 (1.8-7.7); PLATELET COUNT 197 X10'3 (140-440); RED CELL DISTRIBUTION WIDTH 17.9 % (11.5-14.5); WHITE BLOOD COUNT 14.5 X10'3 (4.5-11.0)
[2017-07-21 04:41] LABS: INR 1.1 INR; PARTIAL THROMBOPLASTIN TIME 26 SECONDS (22-32)
[2017-07-21 04:43] LABS: ALANINE AMINOTRANSFERASE 22 U/L (12-78); ALBUMIN/GLOBULIN RATIO 1.4 (1.1-1.5); ALKALINE PHOSPHATASE 64 IU/L (46-116); ANION GAP 6 (8-16); ASPARTATE AMINO TRANSFERASE 34 U/L (10-37); BILIRUBIN,TOTAL 0.2 MG/DL (0.1-1.0); BLOOD UREA NITROGEN 26 MG/DL (7-18); BUN/CREATININE RATIO 19.1 (5.4-32.0); CALCIUM 8.1 MG/DL (8.5-10.1); CHLORIDE 113 MMOL/L (99-107); CREATININE 1.36 MG/DL (0.60-1.10); GLUCOSE 125 MG/DL (70-104); MAGNESIUM 2.7 MG/DL (1.5-2.4); PHOSPHORUS 4.1 MG/DL (2.3-4.5); POTASSIUM 4.4 MMOL/L (3.5-5.1); SODIUM 144 MMOL/L (135-145); TOTAL CARBON DIOXIDE 25.2 MMOL/L (24-32); TOTAL PROTEIN 5.1 G/DL (6.4-8.2); eGFR 52 ML/MIN
[2017-07-21] MEDS: potassium Cl 20mEq/100mL bag 100 ML IV PRN (05:02)
[2017-07-21] MEDS: insulin regular, human inj. 100 UNITS in normal saline 100ml IV IV SCH ×8 (05:02→12:43)
[2017-07-21] MEDS ORDERED: metoprolol tartrate 25mg tablet PO SCH (08:00)
[2017-07-21] MEDS ORDERED: furosemide 40mg/4ml inj IV ONE (08:00)
[2017-07-21] MEDS ORDERED: metoprolol tartrate 12.5mg (1/2 tablet) PO SCH (08:00)
[2017-07-21] MEDS ORDERED: lisinopril 5mg tablet PO SCH (08:00)
[2017-07-21] MEDS: niCARDipine/sod cl 20mg/200ml 200 ML IV PRN ×2 (08:26→17:44)
[2017-07-21] MEDS: aspirin 325mg tablet, delayed-release (Ecotrin) PO SCH (08:27)
[2017-07-21] MEDS: iron polysaccharide complex 150mg capsule PO SCH ×2 (08:27→21:13)
[2017-07-21] MEDS: tamsulosin 0.4mg capsule PO SCH (08:27)
[2017-07-21] MEDS: atorvastatin 10mg tablet PO SCH (08:28)
[2017-07-21] MEDS: cefazolin 1gm/NS 100mL 100 ML IV SCH ×2 (08:29→15:43)
[2017-07-21] MEDS: vancomycin/NS 1 GM ADD-VANTAGE 250 ML IV SCH ×2 (08:29→19:50)
[2017-07-21] MEDS: mupirocin 2% ointment 22GM NS SCH ×2 (08:35→19:50)
[2017-07-21] MEDS: insulin Lispro (HumaLOG) vial - multi-dose SQ SCH ×4 (09:00→19:50)
[2017-07-21] MEDS ORDERED: albuterol 2.5 MG/3 ML nebule ONE (13:19)
[2017-07-21] MEDS ORDERED: lisinopril 5mg tablet PO ONE (17:30)
[2017-07-21] MEDS ORDERED: dextrose 50%-water 50ml dispensing syringe IV PRN ×2 (19:40)
[2017-07-21] MEDS ORDERED: dextrose ORAL solution 15 GM/59 ML bottle PO PRN ×2 (19:40)
[2017-07-21] MEDS ORDERED: glucagon, human recombinant 1mg kit SUBCUT PRN (19:40)
[2017-07-21] MEDS ORDERED: metoprolol tartrate 50mg tablet PO ONE (20:00)
[2017-07-21] MEDS: albuterol 2.5 MG/3 ML nebule NEB PRN (20:06)
[2017-07-21] MEDS: insulin glargine (Lantus) pen - multi-dose SQ SCH (21:19)
[2017-07-22] VITALS (24 sets, daily range): BP systolic 130–194; BP diastolic 65–92
[2017-07-22] MEDS: cefazolin 1gm/NS 100mL 100 ML IV SCH (00:10)
[2017-07-22] MEDS: albuterol 2.5 MG/3 ML nebule NEB PRN (02:03)
[2017-07-22] MEDS ORDERED: albuterol 2.5 MG/3 ML nebule NEB PRN (02:35)
[2017-07-22] MEDS: ipratropium/albuterol 3ml nebule NEB SCH ×6 (02:53→23:10)
[2017-07-22 02:59] LABS: BASOPHILS % (AUTO) 0.1 % (0-1); EOSINOPHILS % (AUTO) 0 % (0-6); HEMATOCRIT 27.4 % (42.0-52.0); HEMOGLOBIN 8.8 g/dl (14.0-17.9); LYMPHOCYTES # (AUTO) 1.2 X10'3 (1.1-4.8); LYMPHOCYTES % (AUTO) 8.8 % (21-51); MEAN CORPUSCULAR HEMOGLOBIN 27.8 PG (27.0-31.0); MEAN CORPUSCULAR HGB CONC 32.3 % (33.0-36.5); MEAN CORPUSCULAR VOLUME 86.1 FL (78-98); MEAN PLATELET VOLUME 8.7 FL (7.4-10.4); MONOCYTES # (AUTO) 1.4 X10'3 (0-0.9); MONOCYTES % (AUTO) 10.2 % (2-12); NEUTROPHILS # (AUTO) 11.1 X10'3 (1.8-7.7); NEUTROPHILS % (AUTO) 80.9 % (42-75); PLATELET COUNT 204 X10'3 (140-440); RED BLOOD COUNT 3.18 X10'6 (4.70-6.10); RED CELL DISTRIBUTION WIDTH 18.3 % (11.5-14.5); WHITE BLOOD COUNT 13.7 X10'3 (4.5-11.0)
[2017-07-22 03:19] LABS: ANION GAP 8 (8-16); BLOOD UREA NITROGEN 29 MG/DL (7-18); BUN/CREATININE RATIO 18.1 (5.4-32.0); CALCIUM 8.4 MG/DL (8.5-10.1); CHLORIDE 109 MMOL/L (99-107); GLUCOSE 187 MG/DL (70-104); MAGNESIUM 2.6 MG/DL (1.5-2.4); PHOSPHORUS 4.6 MG/DL (2.3-4.5); POTASSIUM 4.7 MMOL/L (3.5-5.1); SODIUM 140 MMOL/L (135-145); TOTAL CARBON DIOXIDE 23.4 MMOL/L (24-32); eGFR 43 ML/MIN
[2017-07-22] MEDS: HYDROcodone/acetaminophen 10/325mg tab PO PRN ×3 (04:14→21:03)
[2017-07-22] MEDS: atorvastatin 10mg tablet PO SCH (07:54)
[2017-07-22] MEDS: metoprolol tartrate 25mg tablet PO SCH ×2 (07:54→20:54)
[2017-07-22] MEDS: mupirocin 2% ointment 22GM NS SCH (07:54)
[2017-07-22] MEDS: lisinopril 20mg tablet PO SCH ×2 (07:54→11:46)
[2017-07-22] MEDS: tamsulosin 0.4mg capsule PO SCH (07:55)
[2017-07-22] MEDS: iron polysaccharide complex 150mg capsule PO SCH ×2 (07:55→20:52)
[2017-07-22] MEDS: docusate sod 100mg capsule PO SCH ×2 (07:55→20:00)
[2017-07-22] MEDS: aspirin 325mg tablet, delayed-release (Ecotrin) PO SCH (07:55)
[2017-07-22] MEDS: pantoprazole 40mg Tablet.DR PO SCH ×2 (07:55→20:55)
[2017-07-22] MEDS ORDERED: metoprolol tartrate 25mg tablet PO SCH (08:00)
[2017-07-22] MEDS: insulin Lispro (HumaLOG) vial - multi-dose SQ SCH ×3 (09:46→20:51)
[2017-07-22] MEDS: sodium chloride 0.45% 1,000 ML IV SCH (11:37)
[2017-07-22] MEDS: niCARDipine/sod cl 20mg/200ml 200 ML IV PRN ×2 (16:52→21:04)
[2017-07-22] MEDS: traZODone 50mg tablet PO SCH (20:52)
[2017-07-22] MEDS: insulin glargine (Lantus) pen - multi-dose SQ SCH (20:52)
[2017-07-22] MEDS: ROPINIRole 1mg tablet PO SCH (20:55)
[2017-07-22] MEDS ORDERED: ALPRAZolam 0.25mg tablet PO PRN (22:00)
[2017-07-23] VITALS (22 sets, daily range): BP systolic 113–168; BP diastolic 52–95
[2017-07-23] MEDS: HYDROcodone/acetaminophen 10/325mg tab PO PRN ×2 (01:04→04:52)
[2017-07-23] MEDS: ipratropium/albuterol 3ml nebule NEB SCH ×5 (03:00→23:00)
[2017-07-23] MEDS: insulin regular, human inj. 100 UNITS in normal saline 100ml IV IV SCH ×2 (05:30)
[2017-07-23 05:39] LABS: BASOPHILS % (AUTO) 0.4 % (0-1); EOSINOPHILS # (AUTO) 0.1 X10'3 (0-0.9); EOSINOPHILS % (AUTO) 1.3 % (0-6); HEMATOCRIT 27.7 % (42.0-52.0); LYMPHOCYTES # (AUTO) 1.1 X10'3 (1.1-4.8); LYMPHOCYTES % (AUTO) 10.4 % (21-51); MEAN CORPUSCULAR HEMOGLOBIN 27.8 PG (27.0-31.0); MEAN CORPUSCULAR HGB CONC 32.4 % (33.0-36.5); MEAN CORPUSCULAR VOLUME 85.7 FL (78-98); MEAN PLATELET VOLUME 8.6 FL (7.4-10.4); MONOCYTES # (AUTO) 1.1 X10'3 (0-0.9); MONOCYTES % (AUTO) 10.5 % (2-12); NEUTROPHILS # (AUTO) 8.1 X10'3 (1.8-7.7); NEUTROPHILS % (AUTO) 77.4 % (42-75); PLATELET COUNT 189 X10'3 (140-440); RED BLOOD COUNT 3.23 X10'6 (4.70-6.10); WHITE BLOOD COUNT 10.4 X10'3 (4.5-11.0)
[2017-07-23 05:56] LABS: ALBUMIN 2.7 G/DL (3.4-5.0); ANION GAP 6 (8-16); BLOOD UREA NITROGEN 29 MG/DL (7-18); BUN/CREATININE RATIO 22.3 (5.4-32.0); CALCIUM 8.7 MG/DL (8.5-10.1); CHLORIDE 109 MMOL/L (99-107); GLUCOSE 151 MG/DL (70-104); MAGNESIUM 2.4 MG/DL (1.5-2.4); PHOSPHORUS 3.7 MG/DL (2.3-4.5); POTASSIUM 4.3 MMOL/L (3.5-5.1); SODIUM 141 MMOL/L (135-145); TOTAL CARBON DIOXIDE 26.3 MMOL/L (24-32); eGFR 55 ML/MIN
[2017-07-23] MEDS: tamsulosin 0.4mg capsule PO SCH (08:48)
[2017-07-23] MEDS: aspirin 325mg tablet, delayed-release (Ecotrin) PO SCH (08:48)
[2017-07-23] MEDS: docusate sod 100mg capsule PO SCH ×2 (08:48→21:03)
[2017-07-23] MEDS: atorvastatin 10mg tablet PO SCH (08:48)
[2017-07-23] MEDS: metoprolol tartrate 25mg tablet PO SCH ×2 (08:48→21:03)
[2017-07-23] MEDS: pantoprazole 40mg Tablet.DR PO SCH ×2 (08:48→21:03)
[2017-07-23] MEDS: lisinopril 20mg tablet PO SCH (08:48)
[2017-07-23] MEDS: iron polysaccharide complex 150mg capsule PO SCH ×2 (08:53→21:04)
[2017-07-23] MEDS: insulin Lispro (HumaLOG) vial - multi-dose SQ SCH ×3 (09:58→19:27)
[2017-07-23] MEDS: traZODone 50mg tablet PO SCH (21:03)
[2017-07-23] MEDS: ROPINIRole 1mg tablet PO SCH (21:04)
[2017-07-23] MEDS: insulin glargine (Lantus) pen - multi-dose SQ SCH (21:09)
[2017-07-23] MEDS: LORazepam 2 mg/ml vial IV PRN (21:55)
[2017-07-24] VITALS (25 sets, daily range): BP systolic 112–196; BP diastolic 64–102
[2017-07-24] MEDS: LORazepam 2 mg/ml vial IV PRN ×2 (02:16→05:00)
[2017-07-24] MEDS: ipratropium/albuterol 3ml nebule NEB SCH ×7 (02:34→23:32)
[2017-07-24 03:41] LABS: ALBUMIN 2.4 G/DL (3.4-5.0); ANION GAP 6 (8-16); BLOOD UREA NITROGEN 29 MG/DL (7-18); BUN/CREATININE RATIO 24.2 (5.4-32.0); CALCIUM 8.5 MG/DL (8.5-10.1); CHLORIDE 109 MMOL/L (99-107); GLUCOSE 125 MG/DL (70-104); MAGNESIUM 2.2 MG/DL (1.5-2.4); POTASSIUM 4.1 MMOL/L (3.5-5.1); SODIUM 143 MMOL/L (135-145); TOTAL CARBON DIOXIDE 27.7 MMOL/L (24-32); eGFR 60 ML/MIN
[2017-07-24 03:47] LABS: BASOPHILS % (AUTO) 0.3 % (0-1); EOSINOPHILS # (AUTO) 0.3 X10'3 (0-0.9); EOSINOPHILS % (AUTO) 3.5 % (0-6); HEMOGLOBIN 8.5 g/dl (14.0-17.9); LYMPHOCYTES # (AUTO) 0.9 X10'3 (1.1-4.8); LYMPHOCYTES % (AUTO) 10.8 % (21-51); MEAN CORPUSCULAR HEMOGLOBIN 28.6 PG (27.0-31.0); MEAN CORPUSCULAR HGB CONC 33.9 % (33.0-36.5); MEAN CORPUSCULAR VOLUME 84.4 FL (78-98); MEAN PLATELET VOLUME 8.7 FL (7.4-10.4); MONOCYTES # (AUTO) 0.8 X10'3 (0-0.9); NEUTROPHILS # (AUTO) 6.1 X10'3 (1.8-7.7); NEUTROPHILS % (AUTO) 75.4 % (42-75); PLATELET COUNT 204 X10'3 (140-440); RED BLOOD COUNT 2.97 X10'6 (4.70-6.10); RED CELL DISTRIBUTION WIDTH 17.3 % (11.5-14.5); WHITE BLOOD COUNT 8.1 X10'3 (4.5-11.0)
[2017-07-24] MEDS: insulin regular, human inj. 100 UNITS in normal saline 100ml IV IV SCH ×2 (05:30)
[2017-07-24] MEDS ORDERED: albuterol 2.5 MG/3 ML nebule ONE (06:04)
[2017-07-24] MEDS ORDERED: ALPRAZolam 0.25mg tablet PO PRN (06:35)
[2017-07-24] MEDS: metoprolol tartrate 25mg tablet PO SCH ×2 (07:29→19:41)
[2017-07-24] MEDS: iron polysaccharide complex 150mg capsule PO SCH ×2 (07:30→19:41)
[2017-07-24] MEDS: tamsulosin 0.4mg capsule PO SCH (07:30)
[2017-07-24] MEDS: atorvastatin 10mg tablet PO SCH (07:30)
[2017-07-24] MEDS: docusate sod 100mg capsule PO SCH ×2 (07:30→19:42)
[2017-07-24] MEDS: aspirin 325mg tablet, delayed-release (Ecotrin) PO SCH (07:30)
[2017-07-24] MEDS: pantoprazole 40mg Tablet.DR PO SCH ×2 (07:32→19:42)
[2017-07-24] MEDS: lisinopril 20mg tablet PO SCH (07:32)
[2017-07-24] MEDS ORDERED: furosemide 40mg/4ml inj IV ONE (07:55)
[2017-07-24] MEDS ORDERED: ALPRAZolam 0.5mg tablet PO PRN (07:55)
[2017-07-24] MEDS ORDERED: methylPREDNISolone sod succ 125mg/2ml vial IV ONE (09:00)
[2017-07-24] MEDS: insulin Lispro (HumaLOG) vial - multi-dose SQ SCH ×4 (09:24→21:11)
[2017-07-24] MEDS: sodium chloride 0.45% 1,000 ML IV SCH (11:37)
[2017-07-24] MEDS: levoFLOXACIN 500mg tablet PO SCH (12:36)
[2017-07-24] MEDS: methylPREDNISolone sod succ 125mg/2ml vial IV SCH ×2 (13:59→19:45)
[2017-07-24] MEDS: furosemide 40mg/4ml inj IV SCH ×2 (16:02→23:29)
[2017-07-24] MEDS ORDERED: Potassium Cl inj 20 MEQ in normal saline 250ml IV soln 250 ML IV ONE (16:10)
[2017-07-24 16:13] LABS: % IRON SATURATION 4 % (11-46); IRON 14 UG/DL (53-167); TOTAL IRON BINDING CAPACITY 319 UG/DL (259-388)
[2017-07-24 17:07] LABS: FERRITIN 172 NG/ML (26-388)
[2017-07-24] MEDS ORDERED: levoFLOXACIN 500mg tablet PO SCH (20:00)
[2017-07-24] MEDS: traZODone 50mg tablet PO SCH (20:37)
[2017-07-24] MEDS: ROPINIRole 1mg tablet PO SCH (20:37)
[2017-07-24] MEDS: HYDROcodone/acetaminophen 10/325mg tab PO PRN (20:41)
[2017-07-24] MEDS: insulin glargine (Lantus) pen - multi-dose SQ SCH (21:12)
[2017-07-24] MEDS: ALPRAZolam 0.25mg tablet PO PRN (23:30)
[2017-07-25] VITALS (24 sets, daily range): BP systolic 126–208; BP diastolic 64–94
[2017-07-25] MEDS: methylPREDNISolone sod succ 125mg/2ml vial IV SCH ×4 (02:58→20:57)
[2017-07-25] MEDS: ipratropium/albuterol 3ml nebule NEB SCH ×6 (03:00→23:17)
[2017-07-25] MEDS: insulin regular, human inj. 100 UNITS in normal saline 100ml IV IV SCH ×2 (05:30)
[2017-07-25] MEDS: furosemide 40mg/4ml inj IV SCH ×2 (07:28→15:50)
[2017-07-25] MEDS: aspirin 325mg tablet, delayed-release (Ecotrin) PO SCH (07:28)
[2017-07-25] MEDS: metoprolol tartrate 25mg tablet PO SCH ×2 (07:29→20:58)
[2017-07-25] MEDS: atorvastatin 10mg tablet PO SCH (07:29)
[2017-07-25] MEDS: iron polysaccharide complex 150mg capsule PO SCH ×2 (07:29→20:59)
[2017-07-25] MEDS: docusate sod 100mg capsule PO SCH ×2 (07:29→20:57)
[2017-07-25] MEDS: pantoprazole 40mg Tablet.DR PO SCH ×2 (07:29→20:59)
[2017-07-25] MEDS: lisinopril 20mg tablet PO SCH (07:29)
[2017-07-25] MEDS: tamsulosin 0.4mg capsule PO SCH (07:29)
[2017-07-25 07:55] LABS: BASOPHILS % (AUTO) 0 % (0-1); EOSINOPHILS # (AUTO) 0.1 X10'3 (0-0.9); EOSINOPHILS % (AUTO) 0.9 % (0-6); HEMATOCRIT 29.1 % (42.0-52.0); HEMOGLOBIN 9.6 g/dl (14.0-17.9); LYMPHOCYTES # (AUTO) 0.7 X10'3 (1.1-4.8); LYMPHOCYTES % (AUTO) 6.8 % (21-51); MEAN CORPUSCULAR HEMOGLOBIN 27.6 PG (27.0-31.0); MEAN CORPUSCULAR HGB CONC 32.9 % (33.0-36.5); MEAN PLATELET VOLUME 8.9 FL (7.4-10.4); MONOCYTES # (AUTO) 0.3 X10'3 (0-0.9); MONOCYTES % (AUTO) 3.4 % (2-12); NEUTROPHILS # (AUTO) 8.8 X10'3 (1.8-7.7); NEUTROPHILS % (AUTO) 88.9 % (42-75); PLATELET COUNT 249 X10'3 (140-440); RED BLOOD COUNT 3.47 X10'6 (4.70-6.10); RED CELL DISTRIBUTION WIDTH 18.7 % (11.5-14.5); WHITE BLOOD COUNT 9.9 X10'3 (4.5-11.0)
[2017-07-25 08:09] LABS: ALBUMIN 2.6 G/DL (3.4-5.0); ANION GAP 10 (8-16); BLOOD UREA NITROGEN 45 MG/DL (7-18); BUN/CREATININE RATIO 32.1 (5.4-32.0); CALCIUM 8.8 MG/DL (8.5-10.1); CHLORIDE 103 MMOL/L (99-107); GLUCOSE 296 MG/DL (70-104); MAGNESIUM 2.2 MG/DL (1.5-2.4); PHOSPHORUS 3.8 MG/DL (2.3-4.5); POTASSIUM 3.8 MMOL/L (3.5-5.1); SODIUM 142 MMOL/L (135-145); TOTAL CARBON DIOXIDE 29.2 MMOL/L (24-32); eGFR 50 ML/MIN
[2017-07-25] MEDS ORDERED: sodium ferric gluc complex inj 25 MG in normal saline 50ml IV soln 48 ML IV ONE (08:35)
[2017-07-25] MEDS ORDERED: cloNIDine 0.1 mg tablet PO SCH (08:45)
[2017-07-25] MEDS: folic acid/vitamin B complex w/vitamin C 0.8mg tablet PO SCH (09:07)
[2017-07-25] MEDS: insulin Lispro (HumaLOG) vial - multi-dose SQ SCH ×2 (09:16→14:02)
[2017-07-25] MEDS ORDERED: Potassium Cl inj 20 MEQ in normal saline 250ml IV soln 240 ML IV SCH ×4 (09:50)
[2017-07-25] MEDS: levoFLOXACIN 500mg tablet PO SCH (12:34)
[2017-07-25] MEDS: sodium ferric gluc complex inj 125 MG in normal saline 100ml IV soln 100 ML IV SCH (14:03)
[2017-07-25] MEDS: LACTOBACILLUS RHAMNOSUS GG 15 billion unit sprinkle caps PO SCH (17:12)
[2017-07-25] MEDS: cloNIDine 0.1 mg tablet PO PRN ×2 (17:51→22:44)
[2017-07-25] MEDS: linezolid 600mg/300ml PREMIX 300 ML IV SCH (20:56)
[2017-07-25] MEDS: thiamine 100mg tablet PO SCH (20:59)
[2017-07-25] MEDS: ROPINIRole 0.25mg tablet PO SCH (21:00)
[2017-07-25] MEDS: traZODone 50mg tablet PO SCH (21:00)
[2017-07-25] MEDS: HYDROcodone/acetaminophen 10/325mg tab PO PRN (21:01)
[2017-07-25] MEDS: ALPRAZolam 0.25mg tablet PO PRN (21:02)
[2017-07-25] MEDS ORDERED: potassium Cl 20 mEq SR tablet PO PRN ×2 (22:30)
[2017-07-25] MEDS: insulin glargine (Lantus) pen - multi-dose SQ SCH (22:47)
[2017-07-26] VITALS (35 sets, daily range): BP systolic 97–203; BP diastolic 53–101
[2017-07-26] MEDS: nitroGLYCERIN-Tridil 50MG/D5W 250 ML IV PRN ×2 (01:00→22:25)
[2017-07-26] MEDS: furosemide 40mg/4ml inj IV SCH ×3 (01:00→15:34)
[2017-07-26] MEDS: ipratropium/albuterol 3ml nebule NEB SCH ×6 (03:00→23:16)
[2017-07-26] MEDS: methylPREDNISolone sod succ 125mg/2ml vial IV SCH ×4 (03:15→19:49)
[2017-07-26 05:42] LABS: BASOPHILS % (AUTO) 0 % (0-1); EOSINOPHILS # (AUTO) 0.2 X10'3 (0-0.9); EOSINOPHILS % (AUTO) 1.7 % (0-6); HEMOGLOBIN 9.3 g/dl (14.0-17.9); LYMPHOCYTES # (AUTO) 0.6 X10'3 (1.1-4.8); LYMPHOCYTES % (AUTO) 5.2 % (21-51); MEAN CORPUSCULAR HEMOGLOBIN 27.3 PG (27.0-31.0); MEAN CORPUSCULAR HGB CONC 32.1 % (33.0-36.5); MEAN PLATELET VOLUME 8.8 FL (7.4-10.4); MONOCYTES # (AUTO) 0.3 X10'3 (0-0.9); MONOCYTES % (AUTO) 2.8 % (2-12); NEUTROPHILS # (AUTO) 9.8 X10'3 (1.8-7.7); NEUTROPHILS % (AUTO) 90.3 % (42-75); PLATELET COUNT 289 X10'3 (140-440); RED BLOOD COUNT 3.41 X10'6 (4.70-6.10); RED CELL DISTRIBUTION WIDTH 18.2 % (11.5-14.5); WHITE BLOOD COUNT 10.8 X10'3 (4.5-11.0)
[2017-07-26 06:34] LABS: ALBUMIN 2.6 G/DL (3.4-5.0); ANION GAP 8 (8-16); BLOOD UREA NITROGEN 47 MG/DL (7-18); BUN/CREATININE RATIO 36.2 (5.4-32.0); CALCIUM 8.8 MG/DL (8.5-10.1); CHLORIDE 102 MMOL/L (99-107); GLUCOSE 212 MG/DL (70-104); MAGNESIUM 2.2 MG/DL (1.5-2.4); POTASSIUM 3.7 MMOL/L (3.5-5.1); SODIUM 142 MMOL/L (135-145); TOTAL CARBON DIOXIDE 32.3 MMOL/L (24-32); eGFR 55 ML/MIN
[2017-07-26] MEDS: HYDROcodone/acetaminophen 10/325mg tab PO PRN ×3 (06:50→15:49)
[2017-07-26] MEDS: linezolid 600mg/300ml PREMIX 300 ML IV SCH ×2 (07:21→19:49)
[2017-07-26] MEDS: metoprolol tartrate 25mg tablet PO SCH ×2 (07:21→19:48)
[2017-07-26] MEDS: LACTOBACILLUS RHAMNOSUS GG 15 billion unit sprinkle caps PO SCH (07:22)
[2017-07-26] MEDS: iron polysaccharide complex 150mg capsule PO SCH ×2 (08:00→19:49)
[2017-07-26] MEDS: cloNIDine 0.1 mg tablet PO SCH ×3 (08:22→21:06)
[2017-07-26] MEDS: aspirin 325mg tablet, delayed-release (Ecotrin) PO SCH (08:23)
[2017-07-26] MEDS: docusate sod 100mg capsule PO SCH ×2 (08:23→19:49)
[2017-07-26] MEDS: atorvastatin 10mg tablet PO SCH (08:23)
[2017-07-26] MEDS: thiamine 100mg tablet PO SCH ×2 (08:23→19:49)
[2017-07-26] MEDS: lisinopril 20mg tablet PO SCH (08:24)
[2017-07-26] MEDS: pantoprazole 40mg Tablet.DR PO SCH ×2 (08:24→19:49)
[2017-07-26] MEDS: tamsulosin 0.4mg capsule PO SCH (08:25)
[2017-07-26] MEDS: folic acid/vitamin B complex w/vitamin C 0.8mg tablet PO SCH (08:25)
[2017-07-26] MEDS: insulin Lispro (HumaLOG) vial - multi-dose SQ SCH ×4 (09:31→21:24)
[2017-07-26] MEDS: sodium ferric gluc complex inj 125 MG in normal saline 100ml IV soln 100 ML IV SCH (09:37)
[2017-07-26] MEDS ORDERED: NIFEdipine XL 30mg tablet PO ONE (10:10)
[2017-07-26] MEDS: levoFLOXACIN 500mg tablet PO SCH (10:35)
[2017-07-26] MEDS: sodium chloride 0.45% 1,000 ML IV SCH (11:37)
[2017-07-26] MEDS: traZODone 50mg tablet PO SCH (21:06)
[2017-07-26] MEDS: insulin glargine (Lantus) pen - multi-dose SQ SCH (21:25)
[2017-07-27] VITALS (23 sets, daily range): BP systolic 109–205; BP diastolic 59–93
[2017-07-27] MEDS: furosemide 40mg/4ml inj IV SCH ×2 (00:28→07:46)
[2017-07-27] MEDS: methylPREDNISolone sod succ 125mg/2ml vial IV SCH ×2 (02:19→07:46)
[2017-07-27] MEDS: ipratropium/albuterol 3ml nebule NEB SCH ×6 (03:00→23:00)
[2017-07-27] MEDS: insulin regular, human inj. 100 UNITS in normal saline 100ml IV IV SCH ×2 (05:30)
[2017-07-27 06:28] LABS: POTASSIUM 3.8 MMOL/L (3.5-5.1)
[2017-07-27] MEDS: folic acid/vitamin B complex w/vitamin C 0.8mg tablet PO SCH (07:46)
[2017-07-27] MEDS: atorvastatin 10mg tablet PO SCH (07:47)
[2017-07-27] MEDS: iron polysaccharide complex 150mg capsule PO SCH ×2 (07:47→19:45)
[2017-07-27] MEDS: aspirin 325mg tablet, delayed-release (Ecotrin) PO SCH (07:47)
[2017-07-27] MEDS: tamsulosin 0.4mg capsule PO SCH (07:47)
[2017-07-27] MEDS: pantoprazole 40mg Tablet.DR PO SCH ×2 (07:47→19:44)
[2017-07-27] MEDS: LACTOBACILLUS RHAMNOSUS GG 15 billion unit sprinkle caps PO SCH (07:47)
[2017-07-27] MEDS: lisinopril 20mg tablet PO SCH (07:47)
[2017-07-27] MEDS: thiamine 100mg tablet PO SCH ×2 (07:47→19:45)
[2017-07-27] MEDS: docusate sod 100mg capsule PO SCH ×2 (07:47→19:44)
[2017-07-27] MEDS: sodium ferric gluc complex inj 125 MG in normal saline 100ml IV soln 100 ML IV SCH (07:48)
[2017-07-27] MEDS: cloNIDine 0.1 mg tablet PO SCH ×3 (07:48→20:55)
[2017-07-27] MEDS: NIFEdipine XL 30mg tablet PO SCH (07:48)
[2017-07-27] MEDS: linezolid 600mg/300ml PREMIX 300 ML IV SCH (07:48)
[2017-07-27] MEDS: metoprolol tartrate 25mg tablet PO SCH ×2 (07:50→19:44)
[2017-07-27] MEDS: HYDROcodone/acetaminophen 10/325mg tab PO PRN (07:50)
[2017-07-27] MEDS: insulin Lispro (HumaLOG) vial - multi-dose SQ SCH ×3 (08:10→19:55)
[2017-07-27] MEDS: ROPINIRole 0.25mg tablet PO SCH (08:39)
[2017-07-27] MEDS ORDERED: metoprolol tartrate 50mg tablet PO ONE (09:00)
[2017-07-27 09:15] LABS: BASOPHILS % (AUTO) 0 % (0-1); EOSINOPHILS # (AUTO) 0.2 X10'3 (0-0.9); EOSINOPHILS % (AUTO) 1.2 % (0-6); HEMATOCRIT 28.3 % (42.0-52.0); HEMOGLOBIN 9.3 g/dl (14.0-17.9); LYMPHOCYTES # (AUTO) 0.6 X10'3 (1.1-4.8); LYMPHOCYTES % (AUTO) 4.9 % (21-51); MEAN CORPUSCULAR HEMOGLOBIN 27.6 PG (27.0-31.0); MEAN CORPUSCULAR HGB CONC 32.8 % (33.0-36.5); MEAN CORPUSCULAR VOLUME 84.1 FL (78-98); MEAN PLATELET VOLUME 9.1 FL (7.4-10.4); MONOCYTES # (AUTO) 0.7 X10'3 (0-0.9); MONOCYTES % (AUTO) 5.2 % (2-12); NEUTROPHILS # (AUTO) 11.1 X10'3 (1.8-7.7); NEUTROPHILS % (AUTO) 88.7 % (42-75); PLATELET COUNT 319 X10'3 (140-440); RED BLOOD COUNT 3.37 X10'6 (4.70-6.10); WHITE BLOOD COUNT 12.5 X10'3 (4.5-11.0)
[2017-07-27] MEDS ORDERED: magnesium Cl slow-release 64mg tablet PO PRN (09:25)
[2017-07-27 09:32] LABS: ALBUMIN 2.5 G/DL (3.4-5.0); BLOOD UREA NITROGEN 55 MG/DL (7-18); BUN/CREATININE RATIO 36.7 (5.4-32.0); CALCIUM 8.9 MG/DL (8.5-10.1); GLUCOSE 260 MG/DL (70-104); TOTAL CARBON DIOXIDE 31.2 MMOL/L (24-32); eGFR 46 ML/MIN
[2017-07-27 09:38] LABS: ANION GAP 9 (8-16); CHLORIDE 100 MMOL/L (99-107); SODIUM 140 MMOL/L (135-145)
[2017-07-27] MEDS ORDERED: sodium ferric gluc complex inj 125 MG in normal saline 100ml IV soln 100 ML IV SCH (10:20)
[2017-07-27 10:37] LABS: ANISOCYTOSIS 2+; PLATELET ESTIMATE NORMAL; TOTAL CELLS COUNTED 100
[2017-07-27 10:38] LABS: ELLIPTOCYTES FEW; HYPOCHROMASIA 1+; POIKILOCYTOSIS FEW; POLYCHROMASIA FEW; TARGET CELLS FEW
[2017-07-27 10:39] LABS: TOXIC GRANULATION 3+
[2017-07-27] MEDS: levoFLOXACIN 500mg tablet PO SCH (11:22)
[2017-07-27] MEDS: ALPRAZolam 0.25mg tablet PO PRN (17:34)
[2017-07-27] MEDS: methylPREDNISolone sod succ/PF 40mg inj. IV SCH (19:44)
[2017-07-27] MEDS: linezolid 600mg tablet PO SCH (19:45)
[2017-07-27] MEDS: traZODone 50mg tablet PO SCH (20:55)
[2017-07-27] MEDS: ROPINIRole 1mg tablet PO SCH (20:55)
[2017-07-27] MEDS: insulin glargine (Lantus) pen - multi-dose SQ SCH (20:59)
[2017-07-28] VITALS (16 sets, daily range): BP systolic 113–193; BP diastolic 59–92
[2017-07-28] MEDS: ipratropium/albuterol 3ml nebule NEB SCH ×6 (03:00→23:52)
[2017-07-28 05:41] LABS: BASOPHILS % (AUTO) 0 % (0-1); EOSINOPHILS # (AUTO) 0.1 X10'3 (0-0.9); EOSINOPHILS % (AUTO) 0.9 % (0-6); HEMATOCRIT 30.3 % (42.0-52.0); HEMOGLOBIN 9.7 g/dl (14.0-17.9); LYMPHOCYTES # (AUTO) 1.2 X10'3 (1.1-4.8); MEAN CORPUSCULAR HEMOGLOBIN 27.2 PG (27.0-31.0); MEAN CORPUSCULAR HGB CONC 32.1 % (33.0-36.5); MEAN CORPUSCULAR VOLUME 84.6 FL (78-98); MEAN PLATELET VOLUME 8.9 FL (7.4-10.4); MONOCYTES % (AUTO) 7.6 % (2-12); NEUTROPHILS # (AUTO) 10.7 X10'3 (1.8-7.7); NEUTROPHILS % (AUTO) 82.5 % (42-75); PLATELET COUNT 336 X10'3 (140-440); RED BLOOD COUNT 3.58 X10'6 (4.70-6.10); RED CELL DISTRIBUTION WIDTH 18.8 % (11.5-14.5); WHITE BLOOD COUNT 12.9 X10'3 (4.5-11.0)
[2017-07-28 06:01] LABS: ALBUMIN 2.5 G/DL (3.4-5.0); ANION GAP 8 (8-16); BLOOD UREA NITROGEN 49 MG/DL (7-18); BUN/CREATININE RATIO 32.7 (5.4-32.0); CHLORIDE 104 MMOL/L (99-107); GLUCOSE 235 MG/DL (70-104); POTASSIUM 3.8 MMOL/L (3.5-5.1); SODIUM 143 MMOL/L (135-145); TOTAL CARBON DIOXIDE 31.5 MMOL/L (24-32); eGFR 46 ML/MIN
[2017-07-28 06:07] LABS: LYMPHOCYTES % (MANUAL) 9 % (21-51); MONOCYTES % (MANUAL) 4 % (2-12); NEUTROPHILS % (MANUAL) 84 % (42-75); NUCLEATED RED BLOOD CELLS 1 /100WBC (0-0); PLATELET ESTIMATE NORMAL; TOTAL CELLS COUNTED 100
[2017-07-28 06:08] LABS: ANISOCYTOSIS 1+
[2017-07-28 06:09] LABS: METAMYLEOCYTES% (MANUAL) 3 % (0-0)
[2017-07-28 06:59] LABS: MAGNESIUM 2.3 MG/DL (1.5-2.4)
[2017-07-28] MEDS ORDERED: LIDOcaine 2% 10ml TOPICAL JELLY (Urojet) MM ONE (08:00)
[2017-07-28] MEDS: LACTOBACILLUS RHAMNOSUS GG 15 billion unit sprinkle caps PO SCH (08:44)
[2017-07-28] MEDS: cloNIDine 0.1 mg tablet PO SCH ×3 (08:44→21:50)
[2017-07-28] MEDS: iron polysaccharide complex 150mg capsule PO SCH ×2 (08:44→20:41)
[2017-07-28] MEDS: lisinopril 20mg tablet PO SCH (08:44)
[2017-07-28] MEDS: metoprolol tartrate 25mg tablet PO SCH ×2 (08:44→20:41)
[2017-07-28] MEDS: methylPREDNISolone sod succ/PF 40mg inj. IV SCH ×2 (08:44→20:40)
[2017-07-28] MEDS: thiamine 100mg tablet PO SCH ×2 (08:45→20:41)
[2017-07-28] MEDS: atorvastatin 10mg tablet PO SCH (08:45)
[2017-07-28] MEDS: pantoprazole 40mg Tablet.DR PO SCH ×2 (08:45→20:41)
[2017-07-28] MEDS: linezolid 600mg tablet PO SCH ×2 (08:45→20:41)
[2017-07-28] MEDS: docusate sod 100mg capsule PO SCH ×2 (08:45→20:41)
[2017-07-28] MEDS: folic acid/vitamin B complex w/vitamin C 0.8mg tablet PO SCH (08:45)
[2017-07-28] MEDS: furosemide 40mg tablet PO SCH (08:45)
[2017-07-28] MEDS: tamsulosin 0.4mg capsule PO SCH (08:46)
[2017-07-28] MEDS: aspirin 325mg tablet, delayed-release (Ecotrin) PO SCH (08:46)
[2017-07-28] MEDS: NIFEdipine XL 30mg tablet PO SCH (08:47)
[2017-07-28] MEDS ORDERED: magnesium 4gm in 100ml NS 100 ML IV PRN (09:05)
[2017-07-28] MEDS ORDERED: potassium Cl 20 mEq SR tablet PO PRN ×2 (09:05)
[2017-07-28] MEDS ORDERED: magnesium 2GM in 50ml NS 50 ML IV PRN (09:05)
[2017-07-28] MEDS ORDERED: potassium Cl 40MEQ/NS 500ml 500 ML IV PRN ×2 (09:05)
[2017-07-28] MEDS ORDERED: magnesium Cl slow-release 64mg tablet PO PRN (09:05)
[2017-07-28] MEDS: insulin Lispro (HumaLOG) vial - multi-dose SQ SCH ×4 (09:37→21:46)
[2017-07-28] MEDS: levoFLOXACIN 500mg tablet PO SCH (12:29)
[2017-07-28] MEDS: HYDROcodone/acetaminophen 10/325mg tab PO PRN (15:50)
[2017-07-28] MEDS: magnesium Cl slow-release 64mg tablet PO SCH (20:00)
[2017-07-28] MEDS: ROPINIRole 1mg tablet PO SCH (20:40)
[2017-07-28] MEDS: potassium Cl 20 mEq SR tablet PO SCH (20:41)
[2017-07-28] MEDS: traZODone 50mg tablet PO SCH (20:42)
[2017-07-28] MEDS: ALPRAZolam 0.25mg tablet PO PRN (20:48)
[2017-07-28] MEDS ORDERED: doxazosin mesylate 2mg tablet PO SCH (21:00)
[2017-07-28] MEDS: insulin glargine (Lantus) pen - multi-dose SQ SCH (21:45)
[2017-07-29 03:00] VITALS: BP 159/77
[2017-07-29] MEDS: ipratropium/albuterol 3ml nebule NEB SCH (03:00)
[2017-07-29 05:22] LABS: BASOPHILS % (AUTO) 0 % (0-1); EOSINOPHILS # (AUTO) 0.1 X10'3 (0-0.9); EOSINOPHILS % (AUTO) 1.3 % (0-6); HEMATOCRIT 29.3 % (42.0-52.0); HEMOGLOBIN 9.7 g/dl (14.0-17.9); LYMPHOCYTES # (AUTO) 1.1 X10'3 (1.1-4.8); LYMPHOCYTES % (AUTO) 10.1 % (21-51); MEAN CORPUSCULAR HEMOGLOBIN 27.4 PG (27.0-31.0); MEAN CORPUSCULAR HGB CONC 33.1 % (33.0-36.5); MEAN CORPUSCULAR VOLUME 82.9 FL (78-98); MEAN PLATELET VOLUME 8.2 FL (7.4-10.4); MONOCYTES # (AUTO) 0.6 X10'3 (0-0.9); MONOCYTES % (AUTO) 5.9 % (2-12); NEUTROPHILS # (AUTO) 8.9 X10'3 (1.8-7.7); NEUTROPHILS % (AUTO) 82.7 % (42-75); PLATELET COUNT 351 X10'3 (140-440); RED BLOOD COUNT 3.54 X10'6 (4.70-6.10); RED CELL DISTRIBUTION WIDTH 19.2 % (11.5-14.5); WHITE BLOOD COUNT 10.7 X10'3 (4.5-11.0)
[2017-07-29 05:51] LABS: ALBUMIN 2.5 G/DL (3.4-5.0); ANION GAP 8 (8-16); BLOOD UREA NITROGEN 44 MG/DL (7-18); BUN/CREATININE RATIO 29.3 (5.4-32.0); CALCIUM 8.7 MG/DL (8.5-10.1); CHLORIDE 103 MMOL/L (99-107); GLUCOSE 230 MG/DL (70-104); MAGNESIUM 2.4 MG/DL (1.5-2.4); POTASSIUM 4.5 MMOL/L (3.5-5.1); SODIUM 142 MMOL/L (135-145); TOTAL CARBON DIOXIDE 31.4 MMOL/L (24-32); eGFR 46 ML/MIN
[2017-07-29 06:00] VITALS: BP 162/88
[2017-07-29] MEDS: potassium Cl 20 mEq SR tablet PO SCH (08:00)
[2017-07-29] MEDS ORDERED: K and/or MAG REPLACEMENT MC SCH (08:00)
[2017-07-29] MEDS: magnesium Cl slow-release 64mg tablet PO SCH (08:00)
[2017-07-29] MEDS: lisinopril 20mg tablet PO SCH (08:37)
[2017-07-29] MEDS: cloNIDine 0.1 mg tablet PO SCH ×2 (08:37→12:48)
[2017-07-29] MEDS: furosemide 40mg tablet PO SCH (08:38)
[2017-07-29] MEDS: folic acid/vitamin B complex w/vitamin C 0.8mg tablet PO SCH (08:38)
[2017-07-29] MEDS: docusate sod 100mg capsule PO SCH (08:38)
[2017-07-29] MEDS: atorvastatin 10mg tablet PO SCH (08:38)
[2017-07-29] MEDS: pantoprazole 40mg Tablet.DR PO SCH (08:38)
[2017-07-29] MEDS: aspirin 325mg tablet, delayed-release (Ecotrin) PO SCH (08:38)
[2017-07-29] MEDS: tamsulosin 0.4mg capsule PO SCH (08:38)
[2017-07-29] MEDS: thiamine 100mg tablet PO SCH (08:38)
[2017-07-29] MEDS: methylPREDNISolone sod succ/PF 40mg inj. IV SCH (08:39)
[2017-07-29] MEDS: metoprolol tartrate 25mg tablet PO SCH (08:39)
[2017-07-29] MEDS: linezolid 600mg tablet PO SCH (08:54)
[2017-07-29] MEDS: iron polysaccharide complex 150mg capsule PO SCH (08:55)
[2017-07-29] MEDS: LACTOBACILLUS RHAMNOSUS GG 15 billion unit sprinkle caps PO SCH (08:55)
[2017-07-29] MEDS: insulin Lispro (HumaLOG) vial - multi-dose SQ SCH ×2 (08:58→13:09)
[2017-07-29 11:00] VITALS: BP 132/66
[2017-07-29] MEDS: levoFLOXACIN 500mg tablet PO SCH (11:02)
[2017-07-29 15:00] VITALS: BP 154/73
[2017-07-29] MEDS: HYDROcodone/acetaminophen 10/325mg tab PO PRN (15:13)
[2017-07-30] MEDS ORDERED: ipratropium/albuterol 3ml nebule NEB PRN (02:00)
== END 2017-07-29 16:10 | DRG 235 ==
LOC: PAS IN 05:26 → EDSTATUS 07:30 → ICU 2S 11:12 → PCU 3S 07-28 14:20
PROVIDERS: ADMIT Thoracic Surgery (Cardiothoracic Vascular Surgery); ATTEND Physician Assistant Surgical
PROC: B246ZZ4 Ultrasonography of Right and Left Heart, Transesophageal (ICD-10-PCS; 2017-07-20)
PROC: 06BQ4ZZ Excision of Left Saphenous Vein, Percutaneous Endoscopic Approach (ICD-10-PCS; 2017-07-20)
PROC: 02100Z9 Bypass Coronary Artery, One Artery from Left Internal Mammary, Open Approach (ICD-10-PCS; 2017-07-20)
PROC: 5A1221Z Performance of Cardiac Output, Continuous (ICD-10-PCS; 2017-07-20)
PROC: 02HV33Z Insertion of Infusion Device into Superior Vena Cava, Percutaneous Approach (ICD-10-PCS; 2017-07-20)
PROC: B548ZZA Ultrasonography of Superior Vena Cava, Guidance (ICD-10-PCS; 2017-07-20)
PROC: 02HQ32Z Insertion of Monitoring Device into Right Pulmonary Artery, Percutaneous Approach (ICD-10-PCS; 2017-07-20)
PROC: 4A133B3 Monitoring of Arterial Pressure, Pulmonary, Percutaneous Approach (ICD-10-PCS; 2017-07-20)
PROC: 4A1239Z Monitoring of Cardiac Output, Percutaneous Approach (ICD-10-PCS; 2017-07-20)
PROC: 02130Z3 Bypass Coronary Artery, Four or More Arteries from Coronary Artery, Open Approach (ICD-10-PCS; principal; 2017-07-20 06:50)
DX: I25.110 Atherosclerotic heart disease of native coronary artery with unstable angina pectoris (principal); J96.00 Acute respiratory failure, unspecified whether with hypoxia or hypercapnia; J18.9 Pneumonia, unspecified organism; N17.9 Acute kidney failure, unspecified; E11.40 Type 2 diabetes mellitus with diabetic neuropathy, unspecified; E11.51 Type 2 diabetes mellitus with diabetic peripheral angiopathy without gangrene; E11.22 Type 2 diabetes mellitus with diabetic chronic kidney disease; N18.3 Chronic kidney disease, stage 3 (moderate); I12.9 Hypertensive chronic kidney disease with stage 1 through stage 4 chronic kidney disease, or unspecified chronic kidney disease; J20.9 Acute bronchitis, unspecified; D64.9 Anemia, unspecified; I10 Essential (primary) hypertension; E61.1 Iron deficiency; E78.00 Pure hypercholesterolemia, unspecified; N40.1 Benign prostatic hyperplasia with lower urinary tract symptoms; R33.8 Other retention of urine; Z98.1 Arthrodesis status; I25.2 Old myocardial infarction; Z87.891 Personal history of nicotine dependence
CPT/HCPCS: 0232T; 93312; 93325; 36415; 36600; 71045; 71046; 78582; 80048; 80053; 81001; 82330; 82435; 82728; 82803; 82947; 82948; 83036; 83540; 83550; 83735; 84100; 84132; 84295; 85018; 85025; 85347; 85384; 85576; 85610; 85730; 86885; 86900; 86901; 86920; 87070; 93005; 93880; 93971; 94002; 94060; 94640; 94668; 94760; 97110; 97116; 97162; 97530; A4315; A4353; A6213; A6255; A6257; A6258; A6402; A6446; A6449; A7000; A7048; A9539; A9540; J0690; J1644; J1815; J1940; J2001; J2020; J2060; J2150; J2250; J2270; J2370; J2440; J2704; J2916; J2920; J2930; J3370; J3475; J3480; J3490; J7030; J7120; P9045; P9047

== ENCOUNTER 2018-11-09 17:51 | Emergency (ER) | payer MEDICARE, OTHER ==
[~2018-11-09] VITALS: Ht 170.2 cm; Wt 82.8 kg
[~2018-11-09 17:51] MED LIST changes: +CYCL-1 PO; -TRAZ-146 PO; +TRAZ-219 PO; -albuterol 2.5 MG/3 ML nebule NEB ONE; -ringers solution, lacted 1,000 ML IV SCH
[2018-11-09] MEDS ORDERED: acetaminophen 325mg tablet PO ONE (18:10)
[2018-11-09] MEDS ORDERED: methylPREDNISolone sod succ 125mg/2ml vial IV ONE (18:30)
[2018-11-09] MEDS ORDERED: ipratropium/albuterol 3ml nebule NEB ONE (18:30)
[2018-11-09 18:52] LABS: CLARITY,URINE CLEAR (Clear); COLOR,URINE STRAW (Yellow); GLUCOSE, URINE 250 mg/dl (Neg); KETONES,URINE NEGATIVE (Neg); LEUKOCYTE ESTERASE ,URINE NEGATIVE (Neg); NITRITES, URINE NEGATIVE (Neg); OCCULT BLOOD,URINE TRACE-INTACT (Neg); PH,URINE 5.5 (4.8-8.0); PROTEIN,URINE 100 mg/dl (Neg); UROBILINOGEN,URINE 0.2 E.U/dL (0.2-1.0)
[2018-11-09 18:53] LABS: BASOPHILS # (AUTO) 0.1 X10'3 (0-0.2); BASOPHILS % (AUTO) 0.4 % (0-1); EOSINOPHILS % (AUTO) 0 % (0-6); HEMATOCRIT 34.9 % (42.0-52.0); HEMOGLOBIN 11.6 g/dl (14.0-17.9); LYMPHOCYTES # (AUTO) 1.1 X10'3 (1.1-4.8); LYMPHOCYTES % (AUTO) 5.3 % (21-51); MEAN CORPUSCULAR HGB CONC 33.3 g/dL (33.0-36.5); MEAN CORPUSCULAR VOLUME 84.2 FL (78-98); MEAN PLATELET VOLUME 8.4 FL (7.4-10.4); MONOCYTES # (AUTO) 1.3 X10'3 (0-0.9); MONOCYTES % (AUTO) 6.7 % (2-12); NEUTROPHILS # (AUTO) 17.3 X10'3 (1.8-7.7); NEUTROPHILS % (AUTO) 87.6 % (42-75); PLATELET COUNT 288 X10'3 (140-440); RED BLOOD COUNT 4.15 X10'6 (4.70-6.10); RED CELL DISTRIBUTION WIDTH 16.2 % (11.5-14.5); WHITE BLOOD COUNT 19.8 X10'3 (4.5-11.0)
[2018-11-09 18:55] LABS: UA COLLECTION TYPE CLN CATCH MIDSTREAM
[2018-11-09 18:58] LABS: ALANINE AMINOTRANSFERASE 25 U/L (12-78); ALBUMIN 2.8 G/DL (3.4-5.0); ALBUMIN/GLOBULIN RATIO 0.8 (1.1-1.5); ALKALINE PHOSPHATASE 100 IU/L (46-116); ANION GAP 9 (8-16); ASPARTATE AMINO TRANSFERASE 14 U/L (10-37); BILIRUBIN,TOTAL 0.3 MG/DL (0.1-1.0); BLOOD UREA NITROGEN 37 MG/DL (7-18); CALCIUM 8.7 MG/DL (8.5-10.1); CHLORIDE 101 MMOL/L (99-107); CREATININE 1.48 MG/DL (0.60-1.10); GLUCOSE 231 MG/DL (70-104); POTASSIUM 3.4 MMOL/L (3.5-5.1); SODIUM 137 MMOL/L (135-145); TOTAL CARBON DIOXIDE 26.7 MMOL/L (24-32); TOTAL PROTEIN 6.2 G/DL (6.4-8.2); eGFR 47 ML/MIN
[2018-11-09 19:06] LABS: INR 1.1 INR; PARTIAL THROMBOPLASTIN TIME 27 SECONDS (22-32)
[2018-11-09 19:11] LABS: BACTERIA,URINE FEW /HPF (Neg); MUCUS STRANDS FEW /LPF (Neg); RBC,URINE 0-2 /HPF (0-2); SQUAMOUS EPITHELIAL CELL,UR FEW /LPF (FEW); WBC,URINE 0-4 /HPF (0-4)
--- NOTE | 2018-11-09 19:34 | NUR ---
RT PAGED FOR SVN TREATMENT. TEMP NOW 100.1
--- NOTE | 2018-11-09 19:50 | NUR ---
RT AT BEDSIDE FOR SVN. CURRENT SATS ON 2L 94%
[2018-11-09 19:59] LABS: TOTAL CELLS COUNTED 100
[2018-11-09 20:00] LABS: ANISOCYTOSIS 1+; PLATELET ESTIMATE NORMAL
[2018-11-09] MEDS ORDERED: LEVO750T21 PO (20:37)
[2018-11-09 21:26] VITALS: BP 155/60
== END 2018-11-09 21:28 | disposition home or self-care (01) ==
LOC: ER 17:52
DX: J20.9 Acute bronchitis, unspecified (principal); J44.9 Chronic obstructive pulmonary disease, unspecified; F12.90 Cannabis use, unspecified, uncomplicated; Z87.891 Personal history of nicotine dependence; Z95.5 Presence of coronary angioplasty implant and graft; Z79.899 Other long term (current) drug therapy
CPT/HCPCS: 36415; 71045; 80053; 81001; 83605; 84145; 85025; 85610; 85730; 87040; 93005; 94640; 94760; 96374; 99284; J2930

== ENCOUNTER 2019-01-19 15:58 | Emergency (ER) | payer MEDICARE, OTHER ==
[~2019-01-19] VITALS: Ht 167.6 cm; Wt 61.0 kg
[~2019-01-19 15:58] MED LIST changes: -ALPR-324 PO; -ATOR40TA71 PO; +ATOR80TA PO; +BUDE10.2 INH; -CLOP75TA15 PO; -CYCL-1 PO; +EZET10TA13 PO; +FURO40TA4 PO; -NITR0.4T51 SL; -PANT40TA4 PO; +PER10325T PO; -TRAZ-219 PO; +ZOLP10TA5 PO
[2019-01-19 18:08] VITALS: BP 138/82
== END 2019-01-19 19:00 | disposition home or self-care (01) ==
LOC: ER 16:01
DX: R33.9 Retention of urine, unspecified (principal); J44.9 Chronic obstructive pulmonary disease, unspecified; F12.90 Cannabis use, unspecified, uncomplicated; Z98.890 Other specified postprocedural states; Z95.5 Presence of coronary angioplasty implant and graft; Z79.899 Other long term (current) drug therapy
CPT/HCPCS: 51702; 99284

== ENCOUNTER 2019-01-30 11:52 | Emergency (ER) | payer MEDICARE, OTHER ==
[~2019-01-30] VITALS: Ht 167.6 cm; Wt 81.0 kg
[~2019-01-30 11:52] MED LIST changes: -EZET10TA13 PO; +METF500T20 PO; -METF500T7 PO; +ZET10T PO
[2019-01-30 12:09] LABS: CLARITY,URINE CLOUDY (Clear); COLOR,URINE STRAW (Yellow); GLUCOSE, URINE NEGATIVE (Neg); KETONES,URINE NEGATIVE (Neg); LEUKOCYTE ESTERASE ,URINE SMALL (Neg); NITRITES, URINE NEGATIVE (Neg); OCCULT BLOOD,URINE TRACE-INTACT (Neg); PROTEIN,URINE >=300 mg/dl (Neg); UROBILINOGEN,URINE 0.2 E.U/dL (0.2-1.0)
[2019-01-30 12:13] LABS: UA COLLECTION TYPE CLN CATCH MIDSTREAM
[2019-01-30 12:14] LABS: BACTERIA,URINE 4+ /HPF (Neg); MUCUS STRANDS NONE SEEN /LPF (Neg); RBC,URINE 0-2 /HPF (0-2); SQUAMOUS EPITHELIAL CELL,UR NONE SEEN /LPF (FEW); WBC CLUMPS,URINE MODERATE /HPF (NEGATIVE); WBC,URINE TNTC /HPF (0-4)
[2019-01-30] MEDS ORDERED: CEPH500C5 PO (12:31)
[2019-01-30] MEDS ORDERED: CefTRIAXone 1000mg IM Kit (w/lidocaine diluent) IM ONE (12:35)
[2019-01-30 12:58] VITALS: BP 189/88
== END 2019-01-30 13:01 | disposition home or self-care (01) ==
LOC: ER 11:53
DX: N39.0 Urinary tract infection, site not specified (principal); J44.9 Chronic obstructive pulmonary disease, unspecified; F12.90 Cannabis use, unspecified, uncomplicated; Z98.61 Coronary angioplasty status; Z98.890 Other specified postprocedural states; Z79.2 Long term (current) use of antibiotics; Z79.84 Long term (current) use of oral hypoglycemic drugs; Z79.899 Other long term (current) drug therapy
CPT/HCPCS: 81001; 87077; 87088; 87186; 96372; 99283; J0696

== ENCOUNTER 2019-04-01 05:30 | Day surgery (SDC) | payer MEDICARE, OTHER ==
[2019-03-28 11:39] LABS: BASOPHILS # (AUTO) 0.1 X10'3 (0-0.2); BASOPHILS % (AUTO) 0.7 % (0-1); EOSINOPHILS # (AUTO) 0.2 X10'3 (0-0.9); EOSINOPHILS % (AUTO) 2.3 % (0-6); LYMPHOCYTES % (AUTO) 19.8 % (21-51); MEAN CORPUSCULAR HEMOGLOBIN 25.8 PG (27.0-31.0); MEAN CORPUSCULAR HGB CONC 32.5 g/dL (33.0-36.5); MEAN CORPUSCULAR VOLUME 79.5 FL (78-98); MEAN PLATELET VOLUME 8.7 FL (7.4-10.4); MONOCYTES # (AUTO) 0.7 X10'3 (0-0.9); MONOCYTES % (AUTO) 7.3 % (2-12); NEUTROPHILS # (AUTO) 7.1 X10'3 (1.8-7.7); NEUTROPHILS % (AUTO) 69.9 % (42-75); PRE OP HEMATOCRIT 35.4 % (42.0-52.0); PRE OP HEMOGLOBIN 11.5 g/dL (14.0-17.9); PRE OP PLATELET COUNT 280 X10'3 (140-440); RED BLOOD COUNT 4.45 X10'6 (4.70-6.10); RED CELL DISTRIBUTION WIDTH 20.4 % (11.5-14.5)
[2019-03-28 11:45] LABS: PRE OP PROTIME 10.9 SECONDS (9.0-12.0)
[2019-03-28 11:49] LABS: ALBUMIN 3.3 G/DL (3.4-5.0); ALBUMIN/GLOBULIN RATIO 0.9 (1.1-1.5); ALKALINE PHOSPHATASE 113 IU/L (46-116); BLOOD UREA NITROGEN 25 MG/DL (7-18); CALCIUM 9.3 MG/DL (8.5-10.1); CHLORIDE 105 MMOL/L (99-107); CREATININE 1.39 MG/DL (0.60-1.10); PRE OP ALT 21 U/L (30-65); PRE OP ANION GAP 11 (8-16); PRE OP AST 15 U/L (10-37); PRE OP BILIRUB, TOTAL 0.2 MG/DL (0.0-1.0); PRE OP GLUCOSE 88 MG/DL (70-104); PRE OP POTASSIUM 3.7 MMOL/L (3.4-5.1); PRE OP SODIUM 142 MMOL/L (135-145); TOTAL CARBON DIOXIDE 26.5 MMOL/L (24-32); TOTAL PROTEIN 7.1 G/DL (6.4-8.2); eGFR 50 ML/MIN
[2019-03-28 12:11] LABS: HEMOGLOBIN A1C 6.9 % (4.5-6.2)
[2019-03-28 13:14] LABS: ANISOCYTOSIS 3+; MICROCYTOSIS 1+; PLATELET ESTIMATE NORMAL
[2019-04-01] VITALS (16 sets, daily range): BP systolic 139–183; BP diastolic 71–98
[~2019-04-01] VITALS: Ht 167.6 cm; Wt 82.6 kg
[~2019-04-01 05:30] MED LIST changes: +DOCUMENT DATE & TIME OF BETA-BLOCKER PO ONE; -PER10325T PO; -ZOLP10TA5 PO; +albuterol 2.5 MG/3 ML nebule NEB ONE; +cefazolin/dext.iso 2gm/50ml 50 ML IV ONE; +famotidine 20mg tablet PO ONE
[2019-04-01] MEDS ORDERED: DULO-31 PO (05:59)
[2019-04-01] MEDS ORDERED: PANT-47 PO (05:59)
[2019-04-01] MEDS ORDERED: LIDOcaine 1% (10mg/ml) 2ml vial ONE (06:10)
[2019-04-01] MEDS: ringers solution, lacted 1,000 ML IV SCH ×2 (06:13→10:18)
[2019-04-01] MEDS ORDERED: ringers solution, lacted 1,000 ML IV SCH (07:19)
[2019-04-01] MEDS ORDERED: fentaNYL/PF 50MCG/1 ML 2ML syringe IV PRN ×2 (07:20)
[2019-04-01] MEDS ORDERED: morphine 4 MG/ML inj SYRINge IV PRN ×2 (07:20)
[2019-04-01] MEDS ORDERED: labetalol 20mg/4ml (5mg/ml) syringe IV PRN (07:20)
[2019-04-01] MEDS ORDERED: ondansetron/PF 4mg/2ml inj IV PRN (07:20)
[2019-04-01] MEDS ORDERED: hydrALAZINE 20mg/ml inj. IV PRN (07:20)
[2019-04-01] MEDS ORDERED: fentaNYL/PF 50MCG/1 ML 2ML syringe ONE (07:27)
[2019-04-01] MEDS ORDERED: MIDAZolam 1mg/ml 10ml vial ONE (07:27)
[2019-04-01] MEDS ORDERED: propofol inj 20 ML IV ONE (07:56)
[2019-04-01] MEDS ORDERED: LIDOcaine 2% (20mg/ml) 5ml vial ONE (07:56)
--- NOTE | 2019-04-01 08:50 | NUR ---
Received from OR via BED, accompanied by Anesthesiologist DR ALVAREZ-- and report given by Anesthesiolgist. PATIENT A&OX4, DENIES PAIN, V/S WNL, NEUROVASCULAR CHECKS INTACT, 20G PIV RUE, SCD ON, T10 SENSATIONS, 3 WAY CONTINOUS BLADDER IRRIGATION WITH LIGHT PINK CLEAR URINE OUTPUT IN F/C
--- NOTE | 2019-04-01 09:31 | NUR ---
Received patient report from recovery nurse Ralph DE SOUZA. Awaiting arrival to room 355B.
--- NOTE | 2019-04-01 09:40 | NUR ---
PATIENT A&OX4, DENIES PAIN, V/S WNL, NEUROVASCULAR CHECKS INTACT, 20G PIV RUE, SCD ON, T10 SENSATIONS, 3 WAY CONTINOUS BLADDER IRRIGATION WITH LIGHT PINK CLEAR URINE OUTPUT IN F/C, PATIENT TAKEN TO SURGICAL WITH ALL BELONGINGS AND HOOKED UP TO MONITORS IN ROOM AND REPORT GIVEN TO RN WHO HAS TAKEN OVER PATIENT CARE.
--- NOTE | 2019-04-01 10:17 | NUR ---
Patient arrived to room 354B. VSS. F/C draining to gravity with CBI running.
[2019-04-01] MEDS ORDERED: acetaminophen 325mg tablet PO PRN (12:20)
[2019-04-01] MEDS ORDERED: albuterol 2.5 MG/3 ML nebule NEB SCH (15:00)
[2019-04-01] MEDS ORDERED: metFORMIN 500mg tablet PO SCH (17:30)
--- NOTE | 2019-04-01 17:30 | NUR ---
Dr. Deal called regarding pt only voiding 50ml at a time, bladder scan 395ml. stated to place 18Frech coude cath and to discharge home with F/C.
[2019-04-01] MEDS ORDERED: LIDOcaine 2% 10ml TOPICAL JELLY (Urojet) MM ONE (17:45)
--- NOTE | 2019-04-01 18:28 | NUR ---
Problems reprioritized. Patient report given, questions answered & plan of care reviewed with Robert DE SOUZA.
[2019-04-01] MEDS ORDERED: glipizide 5mg tablet PO SCH (20:00)
[2019-04-01] MEDS ORDERED: metoprolol tartrate 50mg tablet PO SCH (20:00)
[2019-04-01] MEDS ORDERED: budesonide 0.5mg/2ml UD nebule IH SCH (21:00)
[2019-04-01] MEDS ORDERED: ROPINIRole 1mg tablet PO SCH (21:00)
[2019-04-01] MEDS ORDERED: pioglitazone 15mg tablet PO SCH (21:00)
[2019-04-01] MEDS ORDERED: atorvastatin 20mg tablet PO SCH (21:00)
[2019-04-01] MEDS ORDERED: lisinopril 20mg tablet PO SCH (21:00)
[2019-04-01] MEDS ORDERED: ezetimibe 10mg tablet PO SCH (21:00)
[2019-04-02] MEDS ORDERED: pantoprazole 40mg Tablet.DR PO SCH (07:30)
[2019-04-02] MEDS ORDERED: NIFEdipine XL 30mg tablet PO SCH (08:00)
[2019-04-02] MEDS ORDERED: furosemide 40mg tablet PO SCH (08:00)
[2019-04-02] MEDS ORDERED: duloxetine 30mg CAPSULE.DR PO SCH (08:00)
[2019-04-02] MEDS ORDERED: POLY IRON FORTE PO SCH (08:00)
[2019-04-02] MEDS ORDERED: tamsulosin 0.4mg capsule PO SCH (08:00)
[2019-04-05] MEDS ORDERED: TRULICITY 0.75 MG/0.5 ML SQ SCH (09:00)
== END 2019-04-01 19:36 | disposition home or self-care (01) ==
LOC: PAS 05:30 → SUR 3N 09:56 → PAS 19:36
PROVIDERS: ATTEND Urology
DX: N40.1 Benign prostatic hyperplasia with lower urinary tract symptoms (principal); N13.8 Other obstructive and reflux uropathy; C67.5 Malignant neoplasm of bladder neck; N32.89 Other specified disorders of bladder; D64.9 Anemia, unspecified; J43.9 Emphysema, unspecified; I10 Essential (primary) hypertension; E11.9 Type 2 diabetes mellitus without complications; Z87.891 Personal history of nicotine dependence; Z72.89 Other problems related to lifestyle; Z95.1 Presence of aortocoronary bypass graft; F32.9 Major depressive disorder, single episode, unspecified; K21.9 Gastro-esophageal reflux disease without esophagitis; N40.0 Benign prostatic hyperplasia without lower urinary tract symptoms; Z86.73 Personal history of transient ischemic attack (TIA), and cerebral infarction without residual deficits; Z79.899 Other long term (current) drug therapy
CPT/HCPCS: 36415; 52204; 80053; 82948; 83036; 85025; 85610; 85730; 86885; 86900; 86901; J2001; J2250; J2704; J3010; J7120; 88305; A4215; A4346; A4355; A4615; A6258; G0378